=== PATIENT | male | born 1970 | race Caucasian/White ===

== ENCOUNTER 2018-08-19 12:52 | Inpatient (IN) | payer MEDICAID ==
[~2018-08-19] VITALS: Ht 162.6 cm; Wt 60.8 kg
[2018-08-19 12:55] VITALS: BP_SYST 155
[2018-08-19] MEDS ORDERED: NACL 0.9% 1,000 ML IV ONE (13:52)
[2018-08-19] MEDS ORDERED: KETOROLAC TROMETHAMINE 30 MG VIAL IVP ONE (14:00)
[2018-08-19] MEDS ORDERED: ONDANSETRON HCL 4 MG/2 ML VIAL IVP ONE (14:00)
[2018-08-19 14:23] LABS: BASOPHILS % (AUTO) 0.8 % (0.0-2.0); EOSINOPHILS % (AUTO) 0.6 % (0.0-4.0); HEMATOCRIT 34.8 % (36-54); HEMOGLOBIN 11.5 g/dL (14.0-18.0); LYMPHOCYTES # (AUTO) 0.8 K/uL (1.0-5.5); LYMPHOCYTES % (AUTO) 14.7 % (20.5-51.5); MEAN CORPUSCULAR HEMOGLOBIN 37 pg (27-31); MEAN CORPUSCULAR HGB CONC 33 % (32-36); MEAN CORPUSCULAR VOLUME 113 fL (79.0-98.0); MONOCYTES # (AUTO) 0.4 K/uL (0.0-1.0); MONOCYTES % (AUTO) 6.1 % (1.7-9.3); NEUTROPHILS # (AUTO) 4.6 K/uL (1.8-7.7); NEUTROPHILS % (AUTO) 77.8 % (40.0-70.0); PLATELET COUNT (AUTO) 240 K/uL (130-430); RED BLOOD CELL COUNT(AUTO) 3.09 MIL/uL (4.2-6.2); RED CELL DISTRIBUTION WIDTH 14.2 % (9.0-15.0); WHITE BLOOD COUNT (AUTO) 5.8 K/uL (4.8-10.8)
[2018-08-19 14:41] LABS: CALCIUM 8.8 mg/dL (8.4-11.0); CREATININE 3.63 mg/dL (0.55-1.30); POTASSIUM 4.3 mmol/L (3.5-5.1)
[2018-08-19 14:46] LABS: ALBUMIN 2.9 g/dL (3.4-4.8); TOTAL BILIRUBIN 1.1 mg/dL (0.0-1.0)
[2018-08-19] MEDS ORDERED: LOSA100T3 PO (15:05)
[2018-08-19] MEDS ORDERED: LIP20 PO (15:05)
[2018-08-19] MEDS ORDERED: HYDR-4039 PO (15:05)
[2018-08-19] MEDS ORDERED: PRO40 PO (15:05)
[2018-08-19] MEDS ORDERED: CARV25TA55 PO (15:05)
[2018-08-19] MEDS ORDERED: LIP40 PO (15:05)
[2018-08-19] MEDS ORDERED: ASPI-1155 PO (15:05)
[2018-08-19] MEDS ORDERED: D5/0.45 NS 500 ML IV SCH (15:30)
[2018-08-19] MEDS ORDERED: ONDANSETRON HCL 4 MG/2 ML VIAL IVP PRN (15:30)
[2018-08-19] MEDS ORDERED: KETOROLAC TROMETHAMINE 15 MG VIAL IVP PRN (15:30)
[2018-08-19 15:43] VITALS: BP_SYST 148
[2018-08-19] MEDS: D5/0.45 NS 1,000 ML IV SCH (17:36)
[2018-08-19] MEDS ORDERED: CARVEDILOL 25 MG TABLET (COREG) PO ONE (18:30)
[2018-08-19] MEDS ORDERED: cloNIDine HCL 0.2 MG TABLET PO PRN (18:30)
[2018-08-19] MEDS ORDERED: chlordiazePOXIDE HCL 25 MG CAPSULE PO PRN (18:45)
[2018-08-19 20:00] VITALS: BP_SYST 124
[2018-08-19] MEDS: cloNIDine HCL 0.2 MG TABLET PO SCH (20:19)
[2018-08-19] MEDS: hydrALAZINE HCL 25 MG TABLET PO SCH (20:19)
[2018-08-19] MEDS: PANTOPRAZOLE SODIUM 40 MG/VIAL (PROTONIX) IVP SCH (20:19)
[2018-08-20 00:48] VITALS: BP_SYST 112
[2018-08-20] MEDS: D5/0.45 NS 1,000 ML IV SCH ×3 (02:13→21:21)
[2018-08-20 06:39] LABS: EOSINOPHILS # (AUTO) 0.2 K/uL (0.0-0.4); EOSINOPHILS % (AUTO) 3.9 % (0.0-4.0); HEMATOCRIT 29.1 % (36-54); HEMOGLOBIN 9.1 g/dL (14.0-18.0); LYMPHOCYTES % (AUTO) 21.6 % (20.5-51.5); MEAN CORPUSCULAR HEMOGLOBIN 36 pg (27-31); MEAN CORPUSCULAR HGB CONC 31 % (32-36); MEAN CORPUSCULAR VOLUME 113 fL (79.0-98.0); MONOCYTES # (AUTO) 0.3 K/uL (0.0-1.0); MONOCYTES % (AUTO) 7.2 % (1.7-9.3); NEUTROPHILS # (AUTO) 3.2 K/uL (1.8-7.7); NEUTROPHILS % (AUTO) 66.3 % (40.0-70.0); PLATELET COUNT (AUTO) 184 K/uL (130-430); RED BLOOD CELL COUNT(AUTO) 2.57 MIL/uL (4.2-6.2); RED CELL DISTRIBUTION WIDTH 13.6 % (9.0-15.0); WHITE BLOOD COUNT (AUTO) 4.7 K/uL (4.8-10.8)
[2018-08-20 06:55] LABS: ALANINE AMINOTRANSFERASE 90 U/L (12-78); ALBUMIN 2.3 g/dL (3.4-4.8); AMYLASE 151 U/L (0-100); ANION GAP 12 (5-15); ASPARTATE AMINOTRANSFERASE 167 U/L (10-37); CALCIUM 7.6 mg/dL (8.4-11.0); CHLORIDE 106 mmol/L (98-107); CREATININE 4.28 mg/dL (0.55-1.30); GLUCOSE 117 mg/dL (70-99); LIPASE 587 U/L (73-393); PHOSPHORUS 3.8 mg/dL (2.7-4.5); POTASSIUM 3.7 mmol/L (3.5-5.1); SODIUM SERUM 133 mmol/L (136-145); TOTAL BILIRUBIN 0.7 mg/dL (0.0-1.0); UREA NITROGEN, BLOOD 16 mg/dL (8-21)
[2018-08-20 07:47] LABS: GFR AFRICAN AMERICAN 19 mL/min (>90)
[2018-08-20 08:08] VITALS: BP_SYST 119
[2018-08-20] MEDS: PANTOPRAZOLE SODIUM 40 MG/VIAL (PROTONIX) IVP SCH ×2 (08:22→21:24)
[2018-08-20] MEDS: ASPIRIN 81 MG TAB.CHEW PO SCH (08:22)
[2018-08-20] MEDS: hydrALAZINE HCL 25 MG TABLET PO SCH ×2 (08:22→21:23)
[2018-08-20] MEDS: CARVEDILOL 25 MG TABLET (COREG) PO SCH (08:23)
[2018-08-20] MEDS ORDERED: MAGNESIUM SULFATE 50 ML IV ONE ×2 (08:30→19:00)
[2018-08-20 09:00] VITALS: BP_SYST 142
[2018-08-20] MEDS: cloNIDine HCL 0.2 MG TABLET PO SCH ×2 (09:00→21:00)
[2018-08-20] MEDS: MULTIVITAMINS TAB 1 TABLET PO SCH (09:23)
[2018-08-20] MEDS: THIAMINE HCL 100 MG TABLET PO SCH (09:23)
[2018-08-20] MEDS: FOLIC ACID 1 MG TABLET PO SCH (09:23)
[2018-08-20 10:46] VITALS: BP_SYST 109
[2018-08-20 13:17] LABS: BARBITURATE, URINE NEGATIVE (NEG <=200); BENZODIAZEPINE, URINE NEGATIVE (NEG <=150); CANNABINOID, URINE NEGATIVE (NEG <=50); COCAINE, URINE NEGATIVE (NEG <=150); METHAMPHETAMINES SCREEN,URINE NEGATIVE (NEG <=500); OPIATE, URINE NEGATIVE (NEG <=100); PHENCYCLIDINE SCREEN,URINE NEGATIVE (NEG <=25); UR TRICYCLIC ANTIDEPRESSANTS NEGATIVE (NEG <=300); URINE AMPHETAMINE NEGATIVE (NEG <=500); URINE METHADONE NEGATIVE (NEG <=200); URINE OXYCODONE SCREEN NEGATIVE (NEG <=100); URINE PROPOXYPHENE SCREEN NEGATIVE (NEG <=300)
[2018-08-20 15:58] VITALS: BP_SYST 130
[2018-08-20] MEDS ORDERED: CHOLECALCIFEROL (VITAMIN D3) 2,000 UNIT TABLET PO ONE (19:00)
[2018-08-20 21:11] VITALS: BP_SYST 127
[2018-08-21 00:02] VITALS: BP_SYST 128
[2018-08-21 06:33] LABS: CREATININE 4.23 mg/dL (0.55-1.30); POTASSIUM 4.4 mmol/L (3.5-5.1)
[2018-08-21 06:35] LABS: BASOPHILS % (AUTO) 0.5 % (0.0-2.0); EOSINOPHILS # (AUTO) 0.2 K/uL (0.0-0.4); EOSINOPHILS % (AUTO) 4.6 % (0.0-4.0); HEMATOCRIT 28.4 % (36-54); HEMOGLOBIN 9.4 g/dL (14.0-18.0); LYMPHOCYTES # (AUTO) 0.9 K/uL (1.0-5.5); LYMPHOCYTES % (AUTO) 19.3 % (20.5-51.5); MEAN CORPUSCULAR HEMOGLOBIN 37 pg (27-31); MEAN CORPUSCULAR HGB CONC 33 % (32-36); MEAN CORPUSCULAR VOLUME 113 fL (79.0-98.0); MONOCYTES # (AUTO) 0.4 K/uL (0.0-1.0); NEUTROPHILS # (AUTO) 3.1 K/uL (1.8-7.7); NEUTROPHILS % (AUTO) 66.6 % (40.0-70.0); PLATELET COUNT (AUTO) 217 K/uL (130-430); RED BLOOD CELL COUNT(AUTO) 2.51 MIL/uL (4.2-6.2); RED CELL DISTRIBUTION WIDTH 13.6 % (9.0-15.0); WHITE BLOOD COUNT (AUTO) 4.6 K/uL (4.8-10.8)
[2018-08-21 06:52] LABS: TOTAL IRON BIND. CAPACITY 91 ug/dL (250-450)
[2018-08-21 07:10] LABS: HEPATITIS A AB, IgM Negative (Negative); HEPATITIS B CORE AB, IgM Negative (Negative); HEPATITIS B SURFACE AG Negative (Negative)
[2018-08-21] MEDS: D5/0.45 NS 1,000 ML IV SCH ×3 (07:10→17:13)
[2018-08-21 08:00] VITALS: BP_SYST 156
[2018-08-21] MEDS: ASPIRIN 81 MG TAB.CHEW PO SCH (09:04)
[2018-08-21] MEDS: PANTOPRAZOLE SODIUM 40 MG/VIAL (PROTONIX) IVP SCH ×2 (09:04→21:02)
[2018-08-21] MEDS: CARVEDILOL 25 MG TABLET (COREG) PO SCH (09:04)
[2018-08-21] MEDS: FOLIC ACID 1 MG TABLET PO SCH (09:04)
[2018-08-21] MEDS: MULTIVITAMINS TAB 1 TABLET PO SCH (09:05)
[2018-08-21] MEDS: cloNIDine HCL 0.2 MG TABLET PO SCH ×2 (09:05→21:03)
[2018-08-21] MEDS: THIAMINE HCL 100 MG TABLET PO SCH (09:05)
[2018-08-21] MEDS: CHOLECALCIFEROL (VITAMIN D3) 2,000 UNIT TABLET PO SCH (09:05)
[2018-08-21] MEDS: hydrALAZINE HCL 25 MG TABLET PO SCH ×2 (09:05→21:02)
[2018-08-21 12:33] VITALS: BP_SYST 133
[2018-08-21 16:40] VITALS: BP_SYST 128
[2018-08-21 19:50] VITALS: BP_SYST 143
[2018-08-21 23:24] LABS: BILIRUBIN,URINE NEGATIVE (NEGATIVE); BLOOD, URINE NEGATIVE (NEGATIVE); CLARITY/URINE CLEAR (CLEAR); COLOR,URINE YELLOW (YELLOW); GLUCOSE,URINE NEGATIVE (NEGATIVE); KETONES,URINE NEGATIVE (NEGATIVE); LEUKOCYTE ESTERASE ,URINE NEGATIVE (NEGATIVE); NITRITE, URINE NEGATIVE (NEGATIVE); PROTEIN URINE TRACE (NEGATIVE); UROBILINOGEN,URINE 0.2 (0.2-1.0)
[2018-08-22 00:09] VITALS: BP_SYST 123
[2018-08-22] MEDS: D5/0.45 NS 1,000 ML IV SCH ×3 (01:13→17:13)
[2018-08-22 06:39] LABS: CALCIUM 8.2 mg/dL (8.4-11.0); CREATININE 4.24 mg/dL (0.55-1.30); POTASSIUM 4.3 mmol/L (3.5-5.1)
[2018-08-22 06:42] LABS: BASOPHILS % (AUTO) 0.3 % (0.0-2.0); EOSINOPHILS # (AUTO) 0.2 K/uL (0.0-0.4); EOSINOPHILS % (AUTO) 3.5 % (0.0-4.0); HEMATOCRIT 26.9 % (36-54); HEMOGLOBIN 8.8 g/dL (14.0-18.0); LYMPHOCYTES # (AUTO) 1.3 K/uL (1.0-5.5); LYMPHOCYTES % (AUTO) 21.8 % (20.5-51.5); MEAN CORPUSCULAR HEMOGLOBIN 38 pg (27-31); MEAN CORPUSCULAR HGB CONC 33 % (32-36); MEAN CORPUSCULAR VOLUME 115 fL (79.0-98.0); MONOCYTES # (AUTO) 0.5 K/uL (0.0-1.0); MONOCYTES % (AUTO) 8.5 % (1.7-9.3); NEUTROPHILS # (AUTO) 3.8 K/uL (1.8-7.7); NEUTROPHILS % (AUTO) 65.9 % (40.0-70.0); PLATELET COUNT (AUTO) 235 K/uL (130-430); RED BLOOD CELL COUNT(AUTO) 2.35 MIL/uL (4.2-6.2); RED CELL DISTRIBUTION WIDTH 13.8 % (9.0-15.0); WHITE BLOOD COUNT (AUTO) 5.8 K/uL (4.8-10.8)
[2018-08-22 08:00] VITALS: BP_SYST 155
[2018-08-22] MEDS: PANTOPRAZOLE SODIUM 40 MG/VIAL (PROTONIX) IVP SCH ×2 (09:26→20:08)
[2018-08-22] MEDS: ASPIRIN 81 MG TAB.CHEW PO SCH (09:27)
[2018-08-22] MEDS: CARVEDILOL 25 MG TABLET (COREG) PO SCH (09:27)
[2018-08-22] MEDS: hydrALAZINE HCL 25 MG TABLET PO SCH ×2 (09:27→20:09)
[2018-08-22] MEDS: FOLIC ACID 1 MG TABLET PO SCH (09:27)
[2018-08-22 09:28] LABS: AFP, TUMOR MARKER 5.4 ng/mL (0.0-8.3)
[2018-08-22] MEDS: cloNIDine HCL 0.2 MG TABLET PO SCH ×2 (09:28→20:09)
[2018-08-22] MEDS: MULTIVITAMINS TAB 1 TABLET PO SCH (09:28)
[2018-08-22] MEDS: THIAMINE HCL 100 MG TABLET PO SCH (09:28)
[2018-08-22] MEDS: CHOLECALCIFEROL (VITAMIN D3) 2,000 UNIT TABLET PO SCH (09:28)
[2018-08-22 11:27] VITALS: BP_SYST 129
[2018-08-22 12:06] LABS: FOLATE (FOLIC ACID) 19.4 ng/mL (>3.0)
[2018-08-22 15:23] VITALS: BP_SYST 147
[2018-08-22 19:07] LABS: ANTI NUCLEAR AB WITH REFLEX Negative (Negative)
[2018-08-22 19:53] VITALS: BP_SYST 132
[2018-08-23 00:48] VITALS: BP_SYST 128
[2018-08-23] MEDS: D5/0.45 NS 1,000 ML IV SCH ×3 (01:13→15:29)
[2018-08-23 05:43] LABS: BASOPHILS % (AUTO) 0.2 % (0.0-2.0); EOSINOPHILS # (AUTO) 0.2 K/uL (0.0-0.4); EOSINOPHILS % (AUTO) 3.1 % (0.0-4.0); HEMATOCRIT 27.1 % (36-54); HEMOGLOBIN 8.8 g/dL (14.0-18.0); LYMPHOCYTES # (AUTO) 1.1 K/uL (1.0-5.5); LYMPHOCYTES % (AUTO) 17.3 % (20.5-51.5); MEAN CORPUSCULAR HEMOGLOBIN 37 pg (27-31); MEAN CORPUSCULAR HGB CONC 33 % (32-36); MEAN CORPUSCULAR VOLUME 114 fL (79.0-98.0); MONOCYTES # (AUTO) 0.6 K/uL (0.0-1.0); MONOCYTES % (AUTO) 8.6 % (1.7-9.3); NEUTROPHILS # (AUTO) 4.7 K/uL (1.8-7.7); PLATELET COUNT (AUTO) 239 K/uL (130-430); RED BLOOD CELL COUNT(AUTO) 2.37 MIL/uL (4.2-6.2); RED CELL DISTRIBUTION WIDTH 14.1 % (9.0-15.0); WHITE BLOOD COUNT (AUTO) 6.6 K/uL (4.8-10.8)
[2018-08-23 06:06] LABS: ALBUMIN 1.9 g/dL (3.4-4.8); CALCIUM 8.5 mg/dL (8.4-11.0); CREATININE 3.55 mg/dL (0.55-1.30); POTASSIUM 4.3 mmol/L (3.5-5.1); TOTAL BILIRUBIN 0.6 mg/dL (0.0-1.0)
[2018-08-23 07:35] LABS: NEUTROPHILS % (AUTO) 70.8 % (40.0-70.0)
[2018-08-23 08:00] VITALS: BP_SYST 134
[2018-08-23] MEDS: PANTOPRAZOLE SODIUM 40 MG/VIAL (PROTONIX) IVP SCH ×2 (08:32→20:19)
[2018-08-23] MEDS: THIAMINE HCL 100 MG TABLET PO SCH (08:35)
[2018-08-23] MEDS: ASPIRIN 81 MG TAB.CHEW PO SCH (08:36)
[2018-08-23] MEDS: MULTIVITAMINS TAB 1 TABLET PO SCH (08:37)
[2018-08-23] MEDS: FOLIC ACID 1 MG TABLET PO SCH (08:37)
[2018-08-23] MEDS: CHOLECALCIFEROL (VITAMIN D3) 2,000 UNIT TABLET PO SCH (08:37)
[2018-08-23] MEDS: cloNIDine HCL 0.2 MG TABLET PO SCH ×2 (08:39→20:20)
[2018-08-23] MEDS: hydrALAZINE HCL 25 MG TABLET PO SCH ×2 (08:39→20:20)
[2018-08-23] MEDS: CARVEDILOL 25 MG TABLET (COREG) PO SCH (08:40)
[2018-08-23 10:40] LABS: FERRITIN 1596 ng/mL (30-400)
[2018-08-23 11:20] VITALS: BP_SYST 143
[2018-08-23 15:22] VITALS: BP_SYST 120
[2018-08-23 20:00] VITALS: BP_SYST 152
[2018-08-24] MEDS: D5/0.45 NS 1,000 ML IV SCH (00:27)
[2018-08-24 00:53] VITALS: BP_SYST 133
[2018-08-24 06:39] LABS: BASOPHILS # (AUTO) 0.1 K/uL (0.0-0.2); BASOPHILS % (AUTO) 1.2 % (0.0-2.0); EOSINOPHILS # (AUTO) 0.2 K/uL (0.0-0.4); EOSINOPHILS % (AUTO) 2.7 % (0.0-4.0); HEMATOCRIT 26.6 % (36-54); HEMOGLOBIN 8.6 g/dL (14.0-18.0); LYMPHOCYTES # (AUTO) 1.3 K/uL (1.0-5.5); LYMPHOCYTES % (AUTO) 16.4 % (20.5-51.5); MEAN CORPUSCULAR HEMOGLOBIN 38 pg (27-31); MEAN CORPUSCULAR HGB CONC 32 % (32-36); MEAN CORPUSCULAR VOLUME 116 fL (79.0-98.0); MONOCYTES # (AUTO) 0.5 K/uL (0.0-1.0); MONOCYTES % (AUTO) 6.3 % (1.7-9.3); NEUTROPHILS # (AUTO) 5.7 K/uL (1.8-7.7); NEUTROPHILS % (AUTO) 73.4 % (40.0-70.0); PLATELET COUNT (AUTO) 258 K/uL (130-430); RED BLOOD CELL COUNT(AUTO) 2.29 MIL/uL (4.2-6.2); WHITE BLOOD COUNT (AUTO) 7.8 K/uL (4.8-10.8)
[2018-08-24 07:04] LABS: CALCIUM 8.6 mg/dL (8.4-11.0); CREATININE 2.94 mg/dL (0.55-1.30); POTASSIUM 4.5 mmol/L (3.5-5.1)
[2018-08-24 07:15] LABS: TOTAL BILIRUBIN 0.4 mg/dL (0.0-1.0)
[2018-08-24 08:00] VITALS: BP_SYST 164
[2018-08-24] MEDS: ASPIRIN 81 MG TAB.CHEW PO SCH (08:07)
[2018-08-24] MEDS: hydrALAZINE HCL 25 MG TABLET PO SCH (08:07)
[2018-08-24] MEDS: THIAMINE HCL 100 MG TABLET PO SCH (08:07)
[2018-08-24] MEDS: cloNIDine HCL 0.2 MG TABLET PO SCH (08:08)
[2018-08-24] MEDS: FOLIC ACID 1 MG TABLET PO SCH (08:08)
[2018-08-24] MEDS: CHOLECALCIFEROL (VITAMIN D3) 2,000 UNIT TABLET PO SCH (08:08)
[2018-08-24] MEDS: CARVEDILOL 25 MG TABLET (COREG) PO SCH (08:08)
[2018-08-24] MEDS: PANTOPRAZOLE SODIUM 40 MG/VIAL (PROTONIX) IVP SCH (08:08)
[2018-08-24] MEDS: MULTIVITAMINS TAB 1 TABLET PO SCH (08:08)
[2018-08-24 11:51] VITALS: BP_SYST 131
[2018-08-24 15:45] VITALS: BP_SYST 146
[2018-08-24 16:02] VITALS: BP_SYST 152
[2018-08-25 11:21] LABS: ANTI-SMOOTH MUSCLE AB 10 Units (0-19)
== END 2018-08-24 17:05 | disposition home or self-care (01) | DRG 282 ==
LOC: SED 12:52 → SMU 15:23
PROVIDERS: ADMIT Family Medicine; ATTEND Family Medicine
DX: K85.90 Acute pancreatitis without necrosis or infection, unspecified (principal); N17.0 Acute kidney failure with tubular necrosis; K76.7 Hepatorenal syndrome; E86.0 Dehydration; I10 Essential (primary) hypertension; D53.9 Nutritional anemia, unspecified; E78.1 Pure hyperglyceridemia; E78.5 Hyperlipidemia, unspecified; R74.0 Nonspecific elevation of levels of transaminase and lactic acid dehydrogenase [LDH]; F10.239 Alcohol dependence with withdrawal, unspecified; Y90.9 Presence of alcohol in blood, level not specified; Z90.89 Acquired absence of other organs; Z79.899 Other long term (current) drug therapy; Z79.82 Long term (current) use of aspirin
CPT/HCPCS: 36415; 74181; 76700-TC; 80048; 80053; 80074; 80307; 81003; 82105; 82150-TC; 82607; 82728; 82746; 83516; 83540-TC; 83550-TC; 83690-TC; 83735-TC; 84100-TC; 85025; 86038; 87045-TC; 87230-TC; 96361; 96374; 96375; 99285; C9113; J1885; J2405; J3475; J7030

== ENCOUNTER 2020-07-31 15:42 | Inpatient (IN) | payer MEDICAID, SELFPAY ==
[~2020-07-31] VITALS: Ht 162.6 cm; Wt 74.8 kg
[2020-07-31 15:42] VITALS: BP_SYST 191
[~2020-07-31 15:42] MED LIST: CARV25TA55 PO; HYDR-4039 PO; LIB10 PO; MAGN400T10 PO; NEPH PO; NOR10 PO; PRO40 PO; THIA100T73 PO
--- NOTE | 2020-07-31 15:42 | NUR ---
Placed in room 1. Placed on nuclear monitoring technician, blood pressure machine and pulse oximeter. To gown for exam. Side rails up.
--- NOTE | 2020-07-31 15:45 | NUR ---
LADARIUS Man at bedside examining patient.
--- NOTE | 2020-07-31 16:00 | NUR ---
#18 gauge angiocath placed to Left IJ by Dr. Man. Use of asceptic technique. Opsite placed over site. Blood return noted. Blood for lab drawn from site. Flushed with 10 cc of normal saline. No evidence of infiltration noted. Patient tolerated well.
[2020-07-31] MEDS ORDERED: NACL 0.9% 500 ML IV STA (16:03)
--- NOTE | 2020-07-31 16:10 | NUR ---
#16 gauge angiocath placed to left upper arm. Use of asceptic technique. Opsite placed over site. Blood return noted. Blood for lab drawn from site. Flushed with 10 cc of normal saline. No evidence of infiltration noted. Patient tolerated well.
[2020-07-31] MEDS ORDERED: ASPIRIN 81 MG TAB.CHEW ONE (16:12)
[2020-07-31] MEDS ORDERED: ASPIRIN 325 MG TABLET PO ONE (16:30)
[2020-07-31 16:34] LABS: BASOPHILS # (AUTO) 0.1 K/uL (0.0-0.2); BASOPHILS % (AUTO) 0.7 % (0.0-2.0); EOSINOPHILS # (AUTO) 0.1 K/uL (0.0-0.4); EOSINOPHILS % (AUTO) 0.7 % (0.0-4.0); HEMATOCRIT 42.5 % (36-54); HEMOGLOBIN 14.1 g/dL (14.0-18.0); LYMPHOCYTES # (AUTO) 1.4 K/uL (1.0-5.5); LYMPHOCYTES % (AUTO) 13.8 % (20.5-51.5); MEAN CORPUSCULAR HEMOGLOBIN 35 pg (27-31); MEAN CORPUSCULAR HGB CONC 33 % (32-36); MEAN CORPUSCULAR VOLUME 105 fL (79.0-98.0); MONOCYTES # (AUTO) 0.7 K/uL (0.0-1.0); MONOCYTES % (AUTO) 7.4 % (1.7-9.3); NEUTROPHILS # (AUTO) 7.8 K/uL (1.8-7.7); NEUTROPHILS % (AUTO) 77.4 % (40.0-70.0); PLATELET COUNT (AUTO) 205 K/uL (130-430); RED BLOOD CELL COUNT(AUTO) 4.07 MIL/uL (4.2-6.2); RED CELL DISTRIBUTION WIDTH 16.3 % (9.0-15.0); WHITE BLOOD COUNT (AUTO) 10.1 K/uL (4.8-10.8)
[2020-07-31] MEDS ORDERED: NACL 0.9% 500 ML IV ONE (16:45)
--- NOTE | 2020-07-31 16:53 | NUR ---
Pt in gurney with side rails up and in gown. Pt is alert and oriented. Pt on monitor and Biphasic pads also in place for rapid HR. IJ with IVF infusing per Dr. Man's order.
[2020-07-31 16:56] LABS: PROTHROMBIN TIME 10.2 SECS (9.5-12.5)
[2020-07-31 17:11] LABS: CALCIUM 9.5 mg/dL (8.4-11.0); CREATININE 4.42 mg/dL (0.55-1.30); POTASSIUM 4.7 mmol/L (3.5-5.1)
[2020-07-31 17:27] LABS: BILIRUBIN,DIRECT 0.3 mg/dL (0.0-0.3); FREE T4 (FREE THYROXINE) 0.9 ng/dl (0.8-1.5); THYROID STIMULATING HORMONE 1.5 uIu/mL (0.36-3.74); TOTAL BILIRUBIN 0.9 mg/dL (0.0-1.0)
[2020-07-31] MEDS ORDERED: NITROGLYCERIN 0.4 MG TAB.SUBL SL ONE ×2 (17:30→17:45)
[2020-07-31] MEDS ORDERED: DEXTROSE 50% JECT 50 ML DISP.SYRIN IVP ONE (17:45)
--- NOTE | 2020-07-31 17:58 | NUR ---
urine collected and sent to the lab
--- NOTE | 2020-07-31 17:58 | NUR ---
Pt alert and oriented. Pt C/O epigastic pain that is continuous. Pt continues to be monitored.
--- NOTE | 2020-07-31 17:59 | NUR ---
pt to CT.
[2020-07-31] MEDS ORDERED: NITROGLYCERIN 250 ML IV ONE (18:00)
[2020-07-31 18:15] LABS: BILIRUBIN,URINE NEGATIVE (NEGATIVE); BLOOD, URINE 3+ (NEGATIVE); COLOR,URINE YELLOW (YELLOW); GLUCOSE,URINE NEGATIVE (NEGATIVE); KETONES,URINE TRACE (NEGATIVE); LEUKOCYTE ESTERASE ,URINE NEGATIVE (NEGATIVE); NITRITE, URINE NEGATIVE (NEGATIVE); PH,URINE 5.5 (5.0-8.0); PROTEIN URINE 2+ (NEGATIVE); UROBILINOGEN,URINE 0.2 (0.2-1.0)
[2020-07-31] MEDS ORDERED: chlordiazePOXIDE HCL 25 MG CAPSULE PO ONE (18:15)
[2020-07-31 18:40] LABS: CLARITY/URINE SLIGHTLY CLOUDY (CLEAR)
[2020-07-31] MEDS ORDERED: HALOPERIDOL LACTATE 5 MG/ML VIAL IVP ONE (18:45)
[2020-07-31 18:49] LABS: RBC,URINE 50-80 /HPF (0-3)
[2020-07-31 18:50] LABS: BACTERIA,URINE None Seen /HPF (None Seen); CALCIUM PHOSPHATE CRYSTALS,UR None Seen /HPF (None Seen); TRICHOMONAS,URINE None Seen /HPF (None Seen); WBC,URINE NONE SEEN /HPF (0-3); YEAST,URINE None Seen /HPF (None Seen)
--- NOTE | 2020-07-31 19:13 | NUR ---
Pt is resting better now after medication was effective. Started on NTG drip per Provider orders.
--- NOTE | 2020-07-31 19:27 | NUR ---
received report from ZUNILDA Adler for continuation of care.
--- NOTE | 2020-07-31 19:28 | NUR ---
PT STATES HIS BODY ACHES HAVE GOTTEN BETTER, CHEST PAIN IS A 5 OUT OF 10. PT ON NITROGLYCERIN DRIP BEING TITRATED PER MD ORDER.
--- NOTE | 2020-07-31 19:29 | NUR ---
nitroglycerin drip titrated to 15mcg/min. pts blood pressure 182/124. will continue to monitor every 5 mins until goal of SBP of 160.
--- NOTE | 2020-07-31 19:59 | NUR ---
nitroglycerin drip titrated to 20mcg/min. pts blood pressure 174/127 . will continue to monitor every 5 mins until goal of SBP of 160.
--- NOTE | 2020-07-31 20:00 | NUR ---
dr. glass at bedside examining patient.
--- NOTE | 2020-07-31 20:01 | NUR ---
dr. sherman at bedside.
--- NOTE | 2020-07-31 20:04 | NUR ---
nitroglycerin drip titrated to 30mcg/min. pts blood pressure 189/127. will continue to monitor every 5 mins until goal of SBP of 160.
--- NOTE | 2020-07-31 20:09 | NUR ---
nitroglycerin drip titrated to 40mcg/min. pts blood pressure 176/129. will continue to monitor every 5 mins until goal of SBP of 160.
--- NOTE | 2020-07-31 20:14 | NUR ---
nitroglycerin drip titrated to 50mcg/min. pts blood pressure 195/129. will continue to monitor every 5 mins until goal of SBP of 160.
--- NOTE | 2020-07-31 20:21 | NUR ---
nitroglycerin drip titrated to 60mcg/min. pts blood pressure 173/142. will continue to monitor every 5 mins until goal of SBP of 160.
--- NOTE | 2020-07-31 20:24 | NUR ---
nitroglycerin drip titrated to 70mcg/min. pts blood pressure 188/124. will continue to monitor every 5 mins until goal of SBP of 160.
--- NOTE | 2020-07-31 20:29 | NUR ---
nitroglycerin drip titrated to 80mcg/min. pts blood pressure 180/134. will continue to monitor every 5 mins until goal of SBP of 160.
--- NOTE | 2020-07-31 20:34 | NUR ---
nitroglycerin drip titrated to 90mcg/min. pts blood pressure 176/128. will continue to monitor every 5 mins until goal of SBP of 160.
--- NOTE | 2020-07-31 20:39 | NUR ---
nitroglycerin drip titrated to 100mcg/min. pts blood pressure 174/125. will continue to monitor every 5 mins until goal of SBP of 160.
--- NOTE | 2020-07-31 20:44 | NUR ---
nitroglycerin drip titrated to 110mcg/min. pts blood pressure 174/125. will continue to monitor every 5 mins until goal of SBP of 160.
[2020-07-31] MEDS ORDERED: ONDANSETRON HCL 4 MG/2 ML VIAL IVP PRN (20:45)
--- NOTE | 2020-07-31 20:45 | NUR ---
CRITICAL VALUE LIPASE [id number]
--- NOTE | 2020-07-31 20:49 | NUR ---
nitroglycerin drip titrated to 120mcg/min. pts blood pressure 183/129. will continue to monitor every 5 mins until goal of SBP of 160.
--- NOTE | 2020-07-31 20:50 | NUR ---
PT APPEARS DIAPHORETIC AT THIS TIME. PT DENIES NAUSEA AND FEELINGS OF ANXIETY.
--- NOTE | 2020-07-31 20:54 | NUR ---
nitroglycerin drip titrated to 130mcg/min. pts blood pressure 171/122. will continue to monitor every 5 mins until goal of SBP of 160.
[2020-07-31] MEDS ORDERED: PANTOPRAZOLE SODIUM 40 MG/VIAL (PROTONIX) IVP SCH (21:00)
[2020-07-31] MEDS: PIPERACILLIN/TAZO 2.25G/DEX-IS 50 ML IV SCH (21:00)
--- NOTE | 2020-07-31 21:04 | NUR ---
nitroglycerin drip titrated to 130mcg/min. pts blood pressure 160/128. will continue to monitor every 5 mins until goal of SBP of 160.
--- NOTE | 2020-07-31 21:25 | NUR ---
Patient will be admitted to [facility]. Admitted to ICU unit. Will go to room 5. Belongings list completed. Complete and up to date summary report printed. SBAR report to be given at bedside with opportunity for questions.
--- NOTE | 2020-07-31 21:31 | NUR ---
Transfer to ICU via ACLS protocol. Licensed nurse present. IV present no signs or symptoms of infiltration.
[2020-07-31] MEDS ORDERED: NITROGLYCERIN 250 ML IV PRN (21:45)
--- NOTE | 2020-07-31 22:00 | NUR ---
CARES ASSUMED: REPORT RCVD FROM ED NURSE, ALL CARES ASSUMED. PATIENT PLACED TO ICU BED, LEADS APPLIED, BP 178/122 HR 114, R 23, O2 97%. PATIENT HAS NITRO RUNNING AT 130 MCG/KG/MIN RUNNING VIA PIV TO RIGHT AC. PATIENT ALERT AND ORIENTED TO PERSON PLACE TIME AND EVENTS LEADING TOO ADMISSION. BED IN LOWEST LOCKED POSITION AND CALL LIGHT WITHIN REACH.
[2020-07-31] MEDS: THIAMINE HCL 100 MG TABLET PO SCH (22:17)
[2020-07-31] MEDS ORDERED: THIAMINE HCL 100 MG TABLET ONE (22:31)
[2020-07-31] MEDS ORDERED: PIPERACILLIN/TAZOBACTAM 2.25 GM VIAL IV ONE (22:37)
[2020-07-31 22:45] VITALS: BP_SYST 170
--- NOTE | 2020-07-31 22:57 | NUR ---
PAGEMichel: DR. PATEL PAGEMichel R/T REQUEST FOR PRN PAIN MEDICATION
[2020-07-31 23:00] VITALS: BP_SYST 177
[2020-07-31 23:04] VITALS: BP_SYST 160
--- NOTE | 2020-07-31 23:55 | NUR ---
RETURNED CALL: PRIMARY NURSE SPOKE WITH DR. PATEL, PER MD NO NEW ORDERS. WAS INSTRUCTED TO CONTACT CARDIO MD.
--- NOTE | 2020-07-31 23:57 | NUR ---
CARDIO PAGED: DR. CADE PAGED PENDING RETURN CALL
[2020-08-01] VITALS (24 sets, daily range): BP systolic 133–178
--- NOTE | 2020-08-01 | NUR ---
CARDIO RETURNED PAGE: PER DR. CADE INFORMATION SECURITY DIRECTOR, NO NEW ORDERS.
--- NOTE | 2020-08-01 01:15 | NUR ---
PAGED: DR. PATEL PAGED, PENDING RETURN CALL. PATIENT HAVING INCREASE IN ABDOMINAL PAIN AND REQUESTING PAIN MEDICATION. PATIENT CURRENTLY HAS NO PRN ORDERS FOR PAIN.
--- NOTE | 2020-08-01 01:30 | NUR ---
DR. PATEL: HAS NOT RESPONDED TO PAGE, NEW PAGE SENT TO KALIN CASANOVA
--- NOTE | 2020-08-01 01:58 | NUR ---
NSG ROUNDS: PATIENT RESTING COMFORTABLY IN BED WITH EYES CLOSED, IN NO APPARENT ACUTE DISTRESS AND OR DISCOMFORT. BED IN LOWEST LOCKED POSITION AND CALL LIGHT WITHIN REACH.
--- NOTE | 2020-08-01 02:00 | NUR ---
CONSULTATION PAGED/CALLED Reason for Consultation: acute pancreatitis Consulting Physician: HERBERT Lens Finisher Specialty: GI Ordering Physician: HUGH
--- NOTE | 2020-08-01 02:12 | NUR ---
CONSULT PAGED: DR. HERBERT GAGNON CONSULT PAGED, WAS ABLE TO REACH VIA EXCHANGE. NEW ORDERS RC'VD, ORDERS READ BACK AND CONFIRMED. Addendum: 08/01/20 at 0226 by Liz Voss RN SPOKE WITH DR. CASANOVA
--- NOTE | 2020-08-01 02:13 | NUR ---
NEW ORDERS DR. CASANOVA Addendum: 08/01/20 at 0615 by Liz Voss RN NEW ORDERS NISHI, TAMMIE SMALLWOOD.
--- NOTE | 2020-08-01 02:15 | NUR ---
HIGH ALERT NOTE: Called Dr. CASANOVA (GI) identified within the medical roster to verify physician authenticity. NEW ORDERS RC'VD AND READ BACK FOR VERIFICATION.
[2020-08-01] MEDS ORDERED: MAG-AL HYDROX/SIMETH 30 ML UDC PO PRN (02:30)
[2020-08-01] MEDS: PIPERACILLIN/TAZO 2.25G/DEX-IS 50 ML IV SCH ×4 (02:31→22:05)
[2020-08-01] MEDS: LR 1,000 ML IV SCH ×3 (02:31→17:40)
[2020-08-01] MEDS: HYDROmorphone 2 MG/ML VIAL IVP PRN (02:32)
--- NOTE | 2020-08-01 03:48 | NUR ---
NSG ROUNDS: CONTINUING WITH TAPERING OF NITRO DRIP, CURRENTLY RUNNING AT 80MCG/KG/MIN, BP 142/96 HR 137 SINUS TACH. PATIENT HAS EYES CLOSED IN NO APPARENT DISTRESS, MONITORING AT THIS TIME.
[2020-08-01] MEDS: LORazepam 2 MG/ML VIAL IVP PRN ×2 (04:01→18:47)
--- NOTE | 2020-08-01 04:25 | NUR ---
PAGED: DR. CADE CARDIOLOGY PAGED R/T HR 135-145'S, PRN ATIVAN AND DILAUDID NOT EFFECTIVE. PENDING RETURN CALL, PATIENT DENIES ANY DISCOMFORT AT THIS TIME, RESPONDS APPROPRIATELY, CHARGE AWARE.
--- NOTE | 2020-08-01 04:29 | NUR ---
CARDIOLOGY : DR. CADE CALLED UNIT, ORDER RC'VD FOR LOPRESSOR 5 MG IVP ONCE, ORDER CONFIRMED AND READ BACK, ORDER TRANSCRIBED AND CARRIED OUT.
[2020-08-01] MEDS ORDERED: METOPROLOL TARTRATE 5 MG/5 ML VIAL IVP ONE (04:45)
[2020-08-01] MEDS ORDERED: METOPROLOL TARTRATE 5 MG/5 ML VIAL ONE (04:56)
--- NOTE | 2020-08-01 05:06 | NUR ---
LAB DRAW: PEPPER CUTTER AT BEDSIDE PERFORMING LAB DRAW, PT TOLERATED WELL.
--- NOTE | 2020-08-01 05:07 | NUR ---
PAGED FOR CONSULT REASON FOR CONSULT: RENAL FAILURE ORDERING PHYSICIAN: DIALED: [phone] SPOKE TO: SWAPNIL
--- NOTE | 2020-08-01 05:30 | NUR ---
NSG ROUNDS: PATIENT IN BED WITH EYES CLOSED IN NO ACUTE DISTRESS AND OR DISCOMFORT. REMAINS SINUS TACH VIA MONITOR, PATIENT DENIES ANY PAIN. BED IN LOWEST LOCKED POSITION WITH CALL LIGHT IN REACH, CHG BATH GIVEN PT TOLERATED WELL.
[2020-08-01 06:26] LABS: BASOPHILS % (AUTO) 0.5 % (0.0-2.0); EOSINOPHILS # (AUTO) 0.1 K/uL (0.0-0.4); EOSINOPHILS % (AUTO) 1.4 % (0.0-4.0); HEMATOCRIT 41.9 % (36-54); LYMPHOCYTES # (AUTO) 0.6 K/uL (1.0-5.5); LYMPHOCYTES % (AUTO) 6.5 % (20.5-51.5); MEAN CORPUSCULAR HEMOGLOBIN 35 pg (27-31); MEAN CORPUSCULAR HGB CONC 33 % (32-36); MEAN CORPUSCULAR VOLUME 104 fL (79.0-98.0); MONOCYTES # (AUTO) 0.4 K/uL (0.0-1.0); MONOCYTES % (AUTO) 4.7 % (1.7-9.3); NEUTROPHILS # (AUTO) 7.8 K/uL (1.8-7.7); NEUTROPHILS % (AUTO) 86.9 % (40.0-70.0); PLATELET COUNT (AUTO) 156 K/uL (130-430); RED BLOOD CELL COUNT(AUTO) 4.01 MIL/uL (4.2-6.2); RED CELL DISTRIBUTION WIDTH 16.5 % (9.0-15.0)
--- NOTE | 2020-08-01 06:44 | NUR ---
CLOSING NOTE: PATIENT REMAINS IN BED WITH EYES CLOSED, BED IN LOWEST LOCKED POSITION WITH CALL LIGHT IN REACH. ALL NEEDS MET, WILL ENDORSE CARES TO NOC NURSE.
[2020-08-01 06:52] LABS: ALBUMIN 3.3 g/dL (3.4-4.8); BILIRUBIN,DIRECT 0.4 mg/dL (0.0-0.3); CALCIUM 8.8 mg/dL (8.4-11.0); CREATININE 4.38 mg/dL (0.55-1.30); POTASSIUM 5.1 mmol/L (3.5-5.1); TOTAL BILIRUBIN 1.3 mg/dL (0.0-1.0)
--- NOTE | 2020-08-01 07:15 | NUR ---
Nutrition Update Fantasma Scale 15 noted. Pt admitted for Hypertensive Crisis Diet: NPO BMI: 28.3 kg/m2 RD to follow per nutrition care standards.
--- NOTE | 2020-08-01 07:30 | NUR ---
Opening Notes Pt received from night RN using SBAR. Pt resting in bed with no complaints of pain or distress at this time. Bed is in lowest position and pt has been reoriented to call light.
--- NOTE | 2020-08-01 08:30 | NUR ---
Seizure Pads Seizure pads applied to bedside
--- NOTE | 2020-08-01 08:30 | NUR ---
MD Dr. Larios at bedside, informed of Amylase result. New order received to increase IVF to 150cc/hr.
--- NOTE | 2020-08-01 08:45 | NUR ---
Seizure S/S Dialogue with pt pertaining to ETOH withdraw, signs and symptoms of seizure, trembles and changes of condition. Pt was notified to let any nursing staff if any feelings emerge.
[2020-08-01] MEDS ORDERED: PANTOPRAZOLE SODIUM 40 MG TAB PO SCH (09:00)
--- NOTE | 2020-08-01 09:20 | NUR ---
ECHO Pt is having an ECHO performed bedside, pt is tolerating well.
[2020-08-01] MEDS: PANTOPRAZOLE SODIUM 40 MG/VIAL (PROTONIX) IVP SCH ×2 (10:06→22:06)
[2020-08-01] MEDS: THIAMINE HCL 100 MG TABLET PO SCH (10:07)
--- NOTE | 2020-08-01 10:19 | NUR ---
MD Dr. Springer at bedside with pt, new orders received.
[2020-08-01] MEDS ORDERED: CARVEDILOL 25 MG TABLET (COREG) PO ONE (10:30)
[2020-08-01] MEDS ORDERED: amLODIPine BESYLATE 10 MG TABLET PO ONE (10:30)
--- NOTE | 2020-08-01 12:12 | NUR ---
PATIENT RESTING: Patient resting quietly. No acute distress noted. Will continue to monitor.
--- NOTE | 2020-08-01 14:40 | NUR ---
Family Pts father called placed phone in pts room and transferred call. Oriented pt to in room phone and assisted with receiving phone call from pts father.
--- NOTE | 2020-08-01 14:41 | NUR ---
SS note Referred by the Admission Assessment. Asked Thomas MAURO to correct homeless referral as patient is not homeless. As per the notes, patient lives with his parents. Commander Internal Affairs will meet with patient regarding his substance abuse possibly tomorrow when he is more alert and oriented.
--- NOTE | 2020-08-01 18:50 | NUR ---
Medication Pt stated that the feeling of shaky hands is starting, medicated with Ativan. Will continue to monitor.
--- NOTE | 2020-08-01 19:15 | NUR ---
Closing Notes Pt endorsed to night RN using SBAR providing bedside report, all questions answered.
--- NOTE | 2020-08-01 20:57 | NUR ---
PT REASSESSED REORIENTED TO UNIT IV SITES WNL
[2020-08-01] MEDS: CARVEDILOL 25 MG TABLET (COREG) PO SCH (22:07)
--- NOTE | 2020-08-01 23:55 | NUR ---
PT ASSISTED TO REPOSITION REORIENTED TO TIME UNIT IV SITES WNL
[2020-08-02] VITALS (24 sets, daily range): BP systolic 104–151
--- NOTE | 2020-08-02 00:35 | NUR ---
PT PULLED OUT LEFT EJ IV AND RT AC IV SAID HE DID NOT KNOW SLEEPING CHG RN TO ASSIST TO RESTART 2 IVS
[2020-08-02] MEDS: PIPERACILLIN/TAZO 2.25G/DEX-IS 50 ML IV SCH ×4 (03:38→21:39)
[2020-08-02 06:01] LABS: BASOPHILS # (AUTO) 0.1 K/uL (0.0-0.2); BASOPHILS % (AUTO) 0.5 % (0.0-2.0); EOSINOPHILS # (AUTO) 0.2 K/uL (0.0-0.4); EOSINOPHILS % (AUTO) 1.7 % (0.0-4.0); HEMATOCRIT 35.4 % (36-54); LYMPHOCYTES # (AUTO) 1.1 K/uL (1.0-5.5); LYMPHOCYTES % (AUTO) 10.8 % (20.5-51.5); MEAN CORPUSCULAR HEMOGLOBIN 35 pg (27-31); MEAN CORPUSCULAR HGB CONC 34 % (32-36); MEAN CORPUSCULAR VOLUME 102 fL (79.0-98.0); MONOCYTES # (AUTO) 0.7 K/uL (0.0-1.0); MONOCYTES % (AUTO) 6.4 % (1.7-9.3); NEUTROPHILS # (AUTO) 8.4 K/uL (1.8-7.7); NEUTROPHILS % (AUTO) 80.6 % (40.0-70.0); PLATELET COUNT (AUTO) 101 K/uL (130-430); RED BLOOD CELL COUNT(AUTO) 3.47 MIL/uL (4.2-6.2); RED CELL DISTRIBUTION WIDTH 16.6 % (9.0-15.0); WHITE BLOOD COUNT (AUTO) 10.4 K/uL (4.8-10.8)
[2020-08-02 06:19] LABS: ALBUMIN 2.6 g/dL (3.4-4.8); CALCIUM 8.2 mg/dL (8.4-11.0); CREATININE 3.34 mg/dL (0.55-1.30)
[2020-08-02 06:27] LABS: INR 1.1 (0.80-1.20)
--- NOTE | 2020-08-02 07:35 | NUR ---
Opening Note Received bedside report from endorsing RN for continuation of care. Received patient awake and resting in bed, denies any pain or SOB at this time. Bed locked in lowest position, bed alarm on, and call light within reach. Fall and safety precautions in place.
--- NOTE | 2020-08-02 08:12 | NUR ---
Dr. Alejandra in to see patient. New orders received.
[2020-08-02] MEDS: PANTOPRAZOLE SODIUM 40 MG/VIAL (PROTONIX) IVP SCH ×2 (08:24→21:39)
[2020-08-02] MEDS: amLODIPine BESYLATE 10 MG TABLET PO SCH (08:24)
[2020-08-02] MEDS: THIAMINE HCL 100 MG TABLET PO SCH (08:24)
[2020-08-02] MEDS: CARVEDILOL 25 MG TABLET (COREG) PO SCH ×2 (08:25→21:39)
[2020-08-02] MEDS: LR 1,000 ML IV SCH (08:26)
[2020-08-02] MEDS: HYDROmorphone 2 MG/ML VIAL IVP PRN (08:28)
--- NOTE | 2020-08-02 08:45 | NUR ---
Dr. Springer at bedside examining patient. No new orders.
--- NOTE | 2020-08-02 08:50 | NUR ---
Dr. Larios at bedside examining patient. New orders received.
[2020-08-02] MEDS: LORazepam 2 MG/ML VIAL IVP PRN (11:23)
--- NOTE | 2020-08-02 12:14 | NUR ---
Manager Primary Care Note Patient referred by Nursing Assessment. Patient is known to Manager Primary Care from past admissions. See prior notes. TAX ADJUSTER met with patient at bedside. He was oriented but drowsy. Patient lives with his father, who, patient stated does not drink. Discussed patient's substance abuse. Patient is aware that his continued alcohol consumption may hasten his . He has used AA successfully in the past. He is unsure if he wants to follow up with a substance abuse resource at this time. Explained he has to make the contact, but Manager Primary Care can assist in making that happen at patient's direction. Left patient the list of substance abuse resources and my card. Manager Primary Care will remain available.
[2020-08-02] MEDS: NITROGLYCERIN 250 ML IV PRN (12:26)
--- NOTE | 2020-08-02 12:35 | NUR ---
Family Update Spoke with patient's brother Knedall on the phone regarding patient status and plan of care. All questions answered and education provided.
--- NOTE | 2020-08-02 14:30 | NUR ---
PICC Line Insertion PICC line insertion being done at bedside by PICC line RN Zaida.
--- NOTE | 2020-08-02 19:22 | NUR ---
Dietitian Recommendations *When medically feasible, recommend a Cardiac diet *Continue Thiamine coverage *Consider an MVI daily Please see Nutrition Assessment for further details. LT, RD
--- NOTE | 2020-08-02 19:23 | NUR ---
Closing Note Endorsed bedside report to oncoming RN using SBAR approach for continuation of care.
--- NOTE | 2020-08-02 20:00 | NUR ---
ASSESSMENT Pt alert/oriented to self, time, and place. Oxygen in use 1L/min via nasal cannula. Pt's speech is clear and appropriate. Pt has tremors when reaching out upper extremities. PICC line present right upper arm, no redness or swelling noted @ site. Pt voiding. Nitro drip infusing.
[2020-08-02] MEDS: chlordiazePOXIDE HCL 25 MG CAPSULE PO PRN (21:50)
[2020-08-03] VITALS (24 sets, daily range): BP systolic 126–174
[2020-08-03] MEDS: NITROGLYCERIN 250 ML IV PRN (00:41)
[2020-08-03] MEDS: PIPERACILLIN/TAZO 2.25G/DEX-IS 50 ML IV SCH ×4 (04:14→22:08)
[2020-08-03 05:32] LABS: BASOPHILS # (AUTO) 0.2 K/uL (0.0-0.2); BASOPHILS % (AUTO) 2.1 % (0.0-2.0); EOSINOPHILS # (AUTO) 0.6 K/uL (0.0-0.4); EOSINOPHILS % (AUTO) 5.9 % (0.0-4.0); HEMATOCRIT 30.4 % (36-54); HEMOGLOBIN 10.3 g/dL (14.0-18.0); LYMPHOCYTES # (AUTO) 0.8 K/uL (1.0-5.5); LYMPHOCYTES % (AUTO) 8.2 % (20.5-51.5); MEAN CORPUSCULAR HEMOGLOBIN 35 pg (27-31); MEAN CORPUSCULAR HGB CONC 34 % (32-36); MEAN CORPUSCULAR VOLUME 103 fL (79.0-98.0); MONOCYTES # (AUTO) 0.5 K/uL (0.0-1.0); MONOCYTES % (AUTO) 5.5 % (1.7-9.3); NEUTROPHILS # (AUTO) 7.3 K/uL (1.8-7.7); NEUTROPHILS % (AUTO) 78.3 % (40.0-70.0); PLATELET COUNT (AUTO) 79 K/uL (130-430); RED BLOOD CELL COUNT(AUTO) 2.96 MIL/uL (4.2-6.2); WHITE BLOOD COUNT (AUTO) 9.4 K/uL (4.8-10.8)
[2020-08-03 05:50] LABS: ALBUMIN 2.5 g/dL (3.4-4.8); CALCIUM 8.6 mg/dL (8.4-11.0); CREATININE 2.92 mg/dL (0.55-1.30); POTASSIUM 3.6 mmol/L (3.5-5.1); TOTAL BILIRUBIN 0.9 mg/dL (0.0-1.0)
[2020-08-03] MEDS: LR 1,000 ML IV SCH (05:54)
[2020-08-03] MEDS: chlordiazePOXIDE HCL 25 MG CAPSULE PO PRN ×3 (06:17→17:54)
[2020-08-03] MEDS: cloNIDine HCL 0.1 MG TABLET PO PRN ×3 (06:17→22:06)
[2020-08-03 06:35] LABS: HEPATITIS A AB, IgM Negative (Negative); HEPATITIS B CORE AB, IgM Negative (Negative); HEPATITIS B SURFACE AG Negative (Negative)
--- NOTE | 2020-08-03 07:20 | NUR ---
Opening Note Patient report received via SBAR from endorsing RN
--- NOTE | 2020-08-03 08:00 | NUR ---
ROUND Dr. Larios in to see patient, new orders entered
[2020-08-03] MEDS: amLODIPine BESYLATE 10 MG TABLET PO SCH (08:26)
[2020-08-03] MEDS: THIAMINE HCL 100 MG TABLET PO SCH (08:26)
[2020-08-03] MEDS: PANTOPRAZOLE SODIUM 40 MG/VIAL (PROTONIX) IVP SCH ×2 (08:27→22:08)
[2020-08-03] MEDS: CARVEDILOL 25 MG TABLET (COREG) PO SCH ×2 (08:27→22:07)
--- NOTE | 2020-08-03 09:00 | NUR ---
ROUND Dr. Springer in to see patient, physician to enter orders
[2020-08-03] MEDS ORDERED: LOSARTAN POTASSIUM 50 MG TABLET (COZAAR) PO ONE (09:30)
[2020-08-03] MEDS: LORazepam 2 MG/ML VIAL IVP PRN (10:04)
--- NOTE | 2020-08-03 12:00 | NUR ---
Nursing Note Patient had loose BM, patient was given CHG bath, patient cleaned and repositioned
--- NOTE | 2020-08-03 14:00 | NUR ---
Nursing Note Patient had loose BM, patient cleaned and repositioned.
--- NOTE | 2020-08-03 15:45 | NUR ---
ROUND Dr. Alejandra in to see patient, physician entered orders
[2020-08-03] MEDS ORDERED: NITROGLYCERIN 250 ML IV PRN (17:45)
--- NOTE | 2020-08-03 18:50 | NUR ---
ROUND Dr. Cardoso in to see patient, physician entered orders
--- NOTE | 2020-08-03 19:18 | NUR ---
Closing Note Patient report given via SBAR to nightshift RN
--- NOTE | 2020-08-03 20:00 | NUR ---
ASSESSMENT Pt alert/oriented to self, time, and place. Pt on room air. No c/o abdominal pain. Pt had 1 loose stool. IV Fluids and Nitro drip infusing in right upper arm PICC. No redness or swelling noted @ site.
--- NOTE | 2020-08-03 22:00 | NUR ---
ELEVATED BP Has IV nitro infusing. SBP above 160. Medicated with [facility] P.O.
--- NOTE | 2020-08-03 23:00 | NUR ---
Continuation of Care Received patient from ZUNILDA Mulligan for continuation of care. Received report via SBAR.
--- NOTE | 2020-08-03 23:30 | NUR ---
Nursing Assessment Patient is resting in bed. Asked if he was in pain and he stated no and he feels a lot better. Asked if he was comfortable and he stated yes. Will continue to monitor.
[2020-08-04] VITALS (20 sets, daily range): BP systolic 103–164
--- NOTE | 2020-08-04 02:00 | NUR ---
Nursing Assessment Patient is resting in bed. Asked if he was in pain and he stated no. Will continue to monitor.
[2020-08-04] MEDS: chlordiazePOXIDE HCL 25 MG CAPSULE PO PRN ×2 (02:51→07:58)
[2020-08-04] MEDS: PIPERACILLIN/TAZO 2.25G/DEX-IS 50 ML IV SCH ×4 (02:51→20:53)
[2020-08-04 05:53] LABS: BASOPHILS # (AUTO) 0.1 K/uL (0.0-0.2); BASOPHILS % (AUTO) 0.7 % (0.0-2.0); EOSINOPHILS # (AUTO) 0.5 K/uL (0.0-0.4); EOSINOPHILS % (AUTO) 5.2 % (0.0-4.0); HEMATOCRIT 30.8 % (36-54); HEMOGLOBIN 10.4 g/dL (14.0-18.0); LYMPHOCYTES # (AUTO) 1.2 K/uL (1.0-5.5); LYMPHOCYTES % (AUTO) 13.7 % (20.5-51.5); MEAN CORPUSCULAR HEMOGLOBIN 35 pg (27-31); MEAN CORPUSCULAR HGB CONC 34 % (32-36); MEAN CORPUSCULAR VOLUME 102 fL (79.0-98.0); MONOCYTES # (AUTO) 0.8 K/uL (0.0-1.0); MONOCYTES % (AUTO) 9.5 % (1.7-9.3); NEUTROPHILS # (AUTO) 6.2 K/uL (1.8-7.7); NEUTROPHILS % (AUTO) 70.9 % (40.0-70.0); PLATELET COUNT (AUTO) 99 K/uL (130-430); RED BLOOD CELL COUNT(AUTO) 3.01 MIL/uL (4.2-6.2); RED CELL DISTRIBUTION WIDTH 16.2 % (9.0-15.0); WHITE BLOOD COUNT (AUTO) 8.8 K/uL (4.8-10.8)
[2020-08-04 06:01] LABS: ALBUMIN 2.3 g/dL (3.4-4.8); CALCIUM 8.7 mg/dL (8.4-11.0); CREATININE 2.24 mg/dL (0.55-1.30); POTASSIUM 3.5 mmol/L (3.5-5.1); TOTAL BILIRUBIN 0.9 mg/dL (0.0-1.0)
--- NOTE | 2020-08-04 07:05 | NUR ---
Opening Note Patient report received via SBAR from endorsing RN
--- NOTE | 2020-08-04 07:09 | NUR ---
Closing Note Endorsed report to AM nurse using SBAR approach.
--- NOTE | 2020-08-04 07:25 | NUR ---
ROUND Dr. Alejandra in to see patient, physician entered orders
[2020-08-04] MEDS ORDERED: hydrALAZINE HCL 25 MG TABLET PO ONE (07:30)
[2020-08-04] MEDS: PANTOPRAZOLE SODIUM 40 MG/VIAL (PROTONIX) IVP SCH ×2 (07:57→20:53)
[2020-08-04] MEDS: amLODIPine BESYLATE 10 MG TABLET PO SCH (07:57)
[2020-08-04] MEDS: CARVEDILOL 25 MG TABLET (COREG) PO SCH ×2 (07:58→20:53)
[2020-08-04] MEDS: THIAMINE HCL 100 MG TABLET PO SCH (07:58)
[2020-08-04] MEDS: NACL 0.9% 1,000 ML IV SCH (07:59)
[2020-08-04] MEDS: LOSARTAN POTASSIUM 50 MG TABLET (COZAAR) PO SCH (08:09)
[2020-08-04 08:34] LABS: BILIRUBIN,URINE NEGATIVE (NEGATIVE); BLOOD, URINE 3+ (NEGATIVE); CLARITY/URINE CLEAR (CLEAR); COLOR,URINE YELLOW (YELLOW); GLUCOSE,URINE NEGATIVE (NEGATIVE); KETONES,URINE NEGATIVE (NEGATIVE); LEUKOCYTE ESTERASE ,URINE NEGATIVE (NEGATIVE); NITRITE, URINE NEGATIVE (NEGATIVE); PH,URINE 6.5 (5.0-8.0); PROTEIN URINE 2+ (NEGATIVE); UROBILINOGEN,URINE 0.2 (0.2-1.0)
[2020-08-04 08:48] LABS: BACTERIA,URINE FEW /HPF (None Seen); MUCUS,URINE 1+ /LPF (None Seen); WBC,URINE 0-3 /HPF (0-3)
--- NOTE | 2020-08-04 10:30 | NUR ---
ROUND Dr. Larios in to see patient, new orders entered
--- NOTE | 2020-08-04 11:39 | NUR ---
Spoke w/ Sis at [facility]-given verbal review due to computer issues at [facility]-approved for ICU level of care
--- NOTE | 2020-08-04 13:15 | NUR ---
ROUND Dr. Springer in to see patient, no new orders
[2020-08-04] MEDS ORDERED: hydrALAZINE HCL 25 MG TABLET PO SCH (14:00)
[2020-08-04] MEDS: hydrALAZINE HCL 25 MG TABLET PO SCH ×2 (14:34→21:55)
--- NOTE | 2020-08-04 15:00 | NUR ---
Nursing Note Patient had loose BM, patient cleaned and repositioned. Patient tolerated well
--- NOTE | 2020-08-04 18:58 | NUR ---
ROUND Dr. Cardoso in to see patient, new orders entered
--- NOTE | 2020-08-04 19:16 | NUR ---
CLOSING NOTE Patient report given to nightshift RN via SBAR
--- NOTE | 2020-08-04 19:17 | NUR ---
Opening Note Received report from AM nurse using SBAR approach.
--- NOTE | 2020-08-04 20:00 | NUR ---
Nursing Assessment Patient is resting in bed with no signs or symptoms of distress noted. Patient stated he has no pain and is comfortable. Bed is locked in lowest position, and call light is within reach. Will continue to monitor.
[2020-08-05] VITALS: BP_SYST 151
--- NOTE | 2020-08-05 01:00 | NUR ---
Nursing Assessment Patient is resting in bed. No signs or symptoms of distress noted. Patient states that he is comfortable and has no pain. Will continue to monitor.
[2020-08-05] MEDS: NACL 0.9% 1,000 ML IV SCH (02:39)
[2020-08-05] MEDS: PIPERACILLIN/TAZO 2.25G/DEX-IS 50 ML IV SCH ×4 (02:39→21:37)
--- NOTE | 2020-08-05 03:00 | NUR ---
Nursing Assessment Patient is resting in bed. Patient stated that he has no pain and is comfortable. Will continue to monitor.
[2020-08-05] MEDS: hydrALAZINE HCL 25 MG TABLET PO SCH ×3 (04:49→22:50)
[2020-08-05] MEDS: ACETAMINOPHEN 325 MG TABLET PO PRN ×2 (04:53→18:18)
--- NOTE | 2020-08-05 04:55 | NUR ---
Nursing Assessment Patient is resting in bed. Stated he has mild pain in his abdomen. Provided patient with Tyenol 60 mg PRN. Will continue to monitor.
[2020-08-05 05:09] LABS: BASOPHILS # (AUTO) 0.1 K/uL (0.0-0.2); EOSINOPHILS # (AUTO) 0.5 K/uL (0.0-0.4); HEMATOCRIT 34.6 % (36-54); HEMOGLOBIN 11.6 g/dL (14.0-18.0); LYMPHOCYTES # (AUTO) 1.1 K/uL (1.0-5.5); LYMPHOCYTES % (AUTO) 14.2 % (20.5-51.5); MEAN CORPUSCULAR HEMOGLOBIN 35 pg (27-31); MEAN CORPUSCULAR HGB CONC 34 % (32-36); MEAN CORPUSCULAR VOLUME 103 fL (79.0-98.0); MONOCYTES # (AUTO) 0.8 K/uL (0.0-1.0); MONOCYTES % (AUTO) 9.8 % (1.7-9.3); NEUTROPHILS # (AUTO) 5.5 K/uL (1.8-7.7); PLATELET COUNT (AUTO) 138 K/uL (130-430); RED BLOOD CELL COUNT(AUTO) 3.37 MIL/uL (4.2-6.2); RED CELL DISTRIBUTION WIDTH 16.5 % (9.0-15.0)
[2020-08-05 05:31] LABS: ALBUMIN 2.3 g/dL (3.4-4.8); CALCIUM 8.8 mg/dL (8.4-11.0); CREATININE 2.16 mg/dL (0.55-1.30); POTASSIUM 3.4 mmol/L (3.5-5.1); TOTAL BILIRUBIN 0.6 mg/dL (0.0-1.0)
--- NOTE | 2020-08-05 06:00 | NUR ---
Transfer Transferred patient to telemetry bed 114 monitoring his vital signs during transfer. No signs or symptoms of distress noted. Endorsed report to Heather MAURO via SBAR approach.
[2020-08-05 06:11] VITALS: BP_SYST 141
--- NOTE | 2020-08-05 06:18 | NUR ---
Brooke of care: Received report from ICU ZUNILDA Mayfield. Patient in bed, resting. No acute distress. Even, nonlabored breathing on room air. MARCIN PICC line receiving fluids as ordered. Bed is locked at lowest position. Side rails up x2. Bed alarm on. Call light is with patient. Safety and fall precautions are in place. Will continue with plan of care.
--- NOTE | 2020-08-05 06:57 | NUR ---
Closing note: Patient in bed, resting. No acute distress. Even, nonlabored breathing on room air. MARCIN PICC line dressing is c/d/i. Bed is locked at lowest position. Side rails up x2. Bed alarm on. Call light is with patient. Safety and fall precautions are in place. Will endorse care to dayshift RN.
[2020-08-05] MEDS: THIAMINE HCL 100 MG TABLET PO SCH (08:51)
[2020-08-05] MEDS: PANTOPRAZOLE SODIUM 40 MG/VIAL (PROTONIX) IVP SCH ×2 (08:51→21:38)
[2020-08-05] MEDS: CARVEDILOL 25 MG TABLET (COREG) PO SCH ×2 (08:53→21:39)
[2020-08-05] MEDS: amLODIPine BESYLATE 10 MG TABLET PO SCH (08:53)
[2020-08-05] MEDS: LOSARTAN POTASSIUM 50 MG TABLET (COZAAR) PO SCH (09:03)
--- NOTE | 2020-08-05 10:17 | NUR ---
alert, oriented, appropriate. Noticeable tremors on both hands, when holding his coffee. LIBRIUM gave earlier. Encouraged to use bsc until stable. Appetite for breakfast 100%, no complaint of abdominal, nor N/V at this time
[2020-08-05 12:57] VITALS: BP_SYST 131
[2020-08-05] MEDS: chlordiazePOXIDE HCL 25 MG CAPSULE PO PRN (13:01)
[2020-08-05 13:59] VITALS: BP_SYST 126
[2020-08-05 16:00] VITALS: BP_SYST 139
--- NOTE | 2020-08-05 16:10 | NUR ---
diet changed to regular, starting at lunch, appetite good. seen by forestry consultant , covering for the attending, dr maza by gi by nephro. No new orders. patient alert, oriented, able to walk to bathroom, no complaint of abdominal pain, " not anymore"; noticeable tremors on both hands, Librium 25mg po given, asleep .
--- NOTE | 2020-08-05 17:47 | NUR ---
Nutrition F/U (short note d/t high patient load) RD reviewed pt's current EMR including diet Hx, physician notes, nursing notes, pertinent labs/meds/procedures, care trends, and care activity. Per EMR review, pt was advanced to regular diet today; PO intakes fair/good at 78% average x7 meals. Pt would benefit from modification of regular diet to cardiac diet d/t Hx of CHF, CKD, and alcoholic liver Dz. Pt would also benefit from a MVI d/t Hx of alcohol dependence. Pt will be re-assessed in 3-[address] for moderate nutritional risk.
--- NOTE | 2020-08-05 19:30 | NUR ---
OPENING NOTES RECEIVED SBAR REPORT FROM DAY SHIFT RN. PT RESTING IN BED, ALERT & ORIENTED X4. BREATHING EVEN AND UNLABORED TO ROOM AIR. NO S/S OF SHORTNESS OF BREATH NOTED. RIGHT UPPER ARM PICC LINE INTACT, IVF RUNNING ORDERED RATE. BEDSIDE COMMODE AT THE BEDSIDE. BED ALARM ON. SIDE RAILS UP X2. CALL LIGHT WITHIN REACH. SAFETY AND FALL PRECAUTIONS MAINTAINED. WILL CONTINUE TO MONITOR.
[2020-08-05 20:00] VITALS: BP_SYST 153
--- NOTE | 2020-08-05 21:37 | NUR ---
MEDICATION PASS SCHEDULED MEDICATIONS ADMINISTERED ORDERED. DISCUSSED MEDICATION ACTIONS AND POTENTIAL SIDE EFFECTS. PT VERBALIZED UNDERSTANDING. BREATHING EVEN AND UNLABORED TO ROOM AIR. NO S/S OF ACUTE DISTRESS NOTED. CALL LIGHT WITHIN REACH. SAFETY AND FALL PRECAUTIONS MAINTAINED. WILL MONITOR.
--- NOTE | 2020-08-05 23:50 | NUR ---
RN ROUNDS PT RESTING IN BED, WATCHING TV. PT DENIES ANY PAIN AT THIS TIME. CHEST RISE AND FALL SYMMETRICAL. IVF RUNNING ORDERED RATE. PT TOLERATING WELL. BED LOCKED IN LOWEST POSITION. SAFETY AND FALL PRECAUTIONS ARE IN PLACE. WILL CONTINUE TO MONITOR.
[2020-08-06 00:30] VITALS: BP_SYST 144
[2020-08-06] MEDS: NACL 0.9% 1,000 ML IV SCH ×2 (03:35→18:22)
[2020-08-06] MEDS: PIPERACILLIN/TAZO 2.25G/DEX-IS 50 ML IV SCH ×4 (03:35→20:44)
[2020-08-06] MEDS: ACETAMINOPHEN 325 MG TABLET PO PRN ×2 (03:37→20:46)
[2020-08-06] MEDS: hydrALAZINE HCL 25 MG TABLET PO SCH ×3 (06:05→22:45)
--- NOTE | 2020-08-06 07:02 | NUR ---
CLOSING NOTES PT RESTING IN BED. BREATHING EVEN AND UNLABORED TO ROOM AIR. NO S/S OF SHORTNESS OF BREATH NOTED. RIGHT UPPER ARM PICC LINE INTACT, IVF RUNNING ORDERED RATE. BEDSIDE COMMODE AT THE BEDSIDE. BED ALARM ON. SIDE RAILS UP X2. CALL LIGHT WITHIN REACH. SAFETY AND FALL PRECAUTIONS MAINTAINED. ALL NEEDS ARE MET THROUGHOUT SHIFT. WILL CONTINUE TO MONITOR UNTIL ENDORSE TO DAY SHIFT RN.
--- NOTE | 2020-08-06 07:20 | NUR ---
Opening Note Received plan of care via sbar from endorsing RN.
[2020-08-06 07:34] LABS: BASOPHILS # (AUTO) 0.1 K/uL (0.0-0.2); EOSINOPHILS # (AUTO) 0.5 K/uL (0.0-0.4); EOSINOPHILS % (AUTO) 6.4 % (0.0-4.0); HEMATOCRIT 34.2 % (36-54); HEMOGLOBIN 11.4 g/dL (14.0-18.0); LYMPHOCYTES # (AUTO) 1.2 K/uL (1.0-5.5); LYMPHOCYTES % (AUTO) 15.3 % (20.5-51.5); MEAN CORPUSCULAR HEMOGLOBIN 35 pg (27-31); MEAN CORPUSCULAR HGB CONC 33 % (32-36); MEAN CORPUSCULAR VOLUME 103 fL (79.0-98.0); MONOCYTES # (AUTO) 0.9 K/uL (0.0-1.0); MONOCYTES % (AUTO) 11.5 % (1.7-9.3); NEUTROPHILS # (AUTO) 5.1 K/uL (1.8-7.7); NEUTROPHILS % (AUTO) 65.8 % (40.0-70.0); PLATELET COUNT (AUTO) 199 K/uL (130-430); RED BLOOD CELL COUNT(AUTO) 3.31 MIL/uL (4.2-6.2); RED CELL DISTRIBUTION WIDTH 16.7 % (9.0-15.0); WHITE BLOOD COUNT (AUTO) 7.7 K/uL (4.8-10.8)
[2020-08-06 08:04] LABS: ALBUMIN 2.5 g/dL (3.4-4.8); CALCIUM 9.3 mg/dL (8.4-11.0); CREATININE 2.19 mg/dL (0.55-1.30); TOTAL BILIRUBIN 0.5 mg/dL (0.0-1.0)
[2020-08-06 08:10] VITALS: BP_SYST 157
[2020-08-06] MEDS: LOSARTAN POTASSIUM 50 MG TABLET (COZAAR) PO SCH (09:01)
[2020-08-06] MEDS: PANTOPRAZOLE SODIUM 40 MG/VIAL (PROTONIX) IVP SCH ×2 (09:01→20:45)
[2020-08-06] MEDS: amLODIPine BESYLATE 10 MG TABLET PO SCH (09:02)
[2020-08-06] MEDS: THIAMINE HCL 100 MG TABLET PO SCH (09:02)
[2020-08-06] MEDS: CARVEDILOL 25 MG TABLET (COREG) PO SCH ×2 (09:02→20:45)
--- NOTE | 2020-08-06 09:30 | NUR ---
Patient in bed watching television. Patient not presenting any signs of acute distress.
[2020-08-06 12:28] VITALS: BP_SYST 133
--- NOTE | 2020-08-06 12:32 | NUR ---
Dr. Gallegos at bedside. Provided patient update. No new orders, possible discharge for tomorrow 08/07.
--- NOTE | 2020-08-06 14:28 | NUR ---
Patient in bed with eyes closed. Patient not presenting any signs of acute distress.
[2020-08-06 16:12] VITALS: BP_SYST 128
--- NOTE | 2020-08-06 19:05 | NUR ---
Closing Note Provided plan of care via sbar to receiving RN.
--- NOTE | 2020-08-06 19:25 | NUR ---
initial notes: awake, alert, watching tv. no pain, no sob, stable. ivf infusing to right picc line.explain plan of care, pt agree and uderstand. needs attended. call light in reach. will follow-up.
[2020-08-06 20:31] VITALS: BP_SYST 151
--- NOTE | 2020-08-06 22:05 | NUR ---
pt is still awake. watching tv. no pain, stable. needs attended.
[2020-08-07] VITALS: BP_SYST 150
--- NOTE | 2020-08-07 00:56 | NUR ---
sleeping, stable. vital sign. no pain.
--- NOTE | 2020-08-07 02:27 | NUR ---
sleeping, stable, no pain, ivf infusing well. call light with in reach.
[2020-08-07] MEDS: PIPERACILLIN/TAZO 2.25G/DEX-IS 50 ML IV SCH (02:56)
--- NOTE | 2020-08-07 04:10 | NUR ---
sleeping on his side, no pain,stable. ivf infusing well. call light with in reach.
[2020-08-07] MEDS: hydrALAZINE HCL 25 MG TABLET PO SCH ×3 (06:06→20:43)
--- NOTE | 2020-08-07 06:12 | NUR ---
pt wakes up, stable vital sign, took his am medication.needs attended.
--- NOTE | 2020-08-07 06:41 | NUR ---
closing: pt is resting, no pain and distress, stable. ivf infusing well. needs attended the whole shift, call light in reach. will sbar report to am rn.
[2020-08-07 06:46] LABS: BASOPHILS % (AUTO) 0.6 % (0.0-2.0); EOSINOPHILS # (AUTO) 0.5 K/uL (0.0-0.4); EOSINOPHILS % (AUTO) 6.2 % (0.0-4.0); HEMATOCRIT 33.6 % (36-54); HEMOGLOBIN 11.2 g/dL (14.0-18.0); LYMPHOCYTES # (AUTO) 1.3 K/uL (1.0-5.5); LYMPHOCYTES % (AUTO) 16.8 % (20.5-51.5); MEAN CORPUSCULAR HEMOGLOBIN 35 pg (27-31); MEAN CORPUSCULAR HGB CONC 33 % (32-36); MEAN CORPUSCULAR VOLUME 104 fL (79.0-98.0); MONOCYTES # (AUTO) 0.9 K/uL (0.0-1.0); MONOCYTES % (AUTO) 12.2 % (1.7-9.3); NEUTROPHILS % (AUTO) 64.2 % (40.0-70.0); PLATELET COUNT (AUTO) 272 K/uL (130-430); RED BLOOD CELL COUNT(AUTO) 3.24 MIL/uL (4.2-6.2); RED CELL DISTRIBUTION WIDTH 16.7 % (9.0-15.0); WHITE BLOOD COUNT (AUTO) 7.7 K/uL (4.8-10.8)
[2020-08-07 07:14] LABS: ALBUMIN 2.6 g/dL (3.4-4.8); CALCIUM 9.1 mg/dL (8.4-11.0); CREATININE 2.05 mg/dL (0.55-1.30); POTASSIUM 3.5 mmol/L (3.5-5.1); TOTAL BILIRUBIN 0.5 mg/dL (0.0-1.0)
--- NOTE | 2020-08-07 07:30 | NUR ---
AM ROUNDS: PATIENT LYING ON THE BED,AWAKE,ALERT AND ORIENTED X4. IV FLUIDS RUNNING AT RIGHT UPPER ARM PICC LINE,CLEAN AND DRY. CALL LIGHT WITH IN REACH. BED LOCKED AT LOWEST POSITION. NOT IN ANY DISTRESS.
[2020-08-07 08:05] VITALS: BP_SYST 146
[2020-08-07] MEDS: PANTOPRAZOLE SODIUM 40 MG/VIAL (PROTONIX) IVP SCH ×2 (08:24→20:42)
[2020-08-07] MEDS: amLODIPine BESYLATE 10 MG TABLET PO SCH (08:24)
[2020-08-07] MEDS: THIAMINE HCL 100 MG TABLET PO SCH (08:24)
[2020-08-07] MEDS: LOSARTAN POTASSIUM 50 MG TABLET (COZAAR) PO SCH (08:25)
[2020-08-07] MEDS: CARVEDILOL 25 MG TABLET (COREG) PO SCH ×2 (08:25→20:43)
--- NOTE | 2020-08-07 10:30 | NUR ---
RN ROUNDS: SLEEPING DURING ROUNDS. NO DISTRESS.
[2020-08-07 12:00] VITALS: BP_SYST 131; BP_SYST 145
--- NOTE | 2020-08-07 12:30 | NUR ---
RN ROUNDS: JUST ATE LUNCH. NO NEEDS THIS TIME.
--- NOTE | 2020-08-07 15:19 | NUR ---
MD ROUNDS: PATIENT FOR PT AND EVALUATION BY ORDER OF DR REESE.
[2020-08-07 16:00] VITALS: BP_SYST 142
--- NOTE | 2020-08-07 16:19 | NUR ---
RN ROUNDS: PATIENT SLEEPING DURING ROUNDS.STABLE.
[2020-08-07] MEDS: NACL 0.9% 1,000 ML IV SCH (18:27)
--- NOTE | 2020-08-07 18:45 | NUR ---
Closing Notes: Patient just started eating his dinner. Waiting for Pt eval and treatment. Call light with in reach. Bed locked at lowest position. No Acute distress.
--- NOTE | 2020-08-07 19:15 | NUR ---
OPENING NOTE BEDSIDE REPORT RECEIVED FROM DAYSHIFT NURSE. PATIENT RECEIVED LYING IN BED, SLEEPING AT THIS TIME. NO S/S OF ACUTE DISTRESS NOTED. BREATHING EVEN AND UNLABORED. HOB RAISED. IVF INFUSING WELL, IV SITE IS PATENT, NO SIGNS OF INFILTRATION OR INFECTION NOTED. HOB SLIGHTLY RAISED. BED IS LOCKED AND AT LOWEST POSITION. CALL LIGHT WITH PATIENT. WILL CONTINUE TO MONITOR.
[2020-08-07 20:00] VITALS: BP_SYST 154
--- NOTE | 2020-08-07 20:43 | NUR ---
HIGH BP/PAIN/URINAL/SOCKS/[facility] PATIENT IS AWAKE AT THIS TIME. COMPLAINS OF ABDOMINAL PAIN. VITALS TAKEN, BLOOD PRESSURE IS HIGH, 154/105, SCHEDULED MEDICATIONS ADMINISTERED. WILL MONITOR AND REASSESS BP. PRN MEDICATION GIVEN FOR PAIN. PATIENT'S URINAL EMPTIED, SOCKS PROVIDED BY RN. ALL NEEDS MET. CALL LIGHT WITH PATIENT. BED IS LOCKED AND AT LOWEST POSITION. WILL CONTINUE TO MONITOR.
[2020-08-07] MEDS: HYDROmorphone 2 MG/ML VIAL IVP PRN (20:44)
--- NOTE | 2020-08-07 23:00 | NUR ---
ROUNDS PATIENT IN BED, AWAKE, WATCHING TV, NO COMPLAINTS OF PAIN. BREATHING EVEN AND UNLABORED, IVF INFUSING WELL. CALL LIGHT WITH PATIENT. WILL CONTINUE TO MONITOR.
[2020-08-08] VITALS: BP_SYST 131
--- NOTE | 2020-08-08 01:00 | NUR ---
ROUNDS PATIENT IN BED, AWAKE, WATCHING TV. NO S/S OF ACUTE DISTRESS, PATIENT DENIES PAIN. BREATHING IS EVEN AND UNLABORED. IVF INFUSING WELL. CALL LIGHT WITH PATIENT. ALL NEEDS MET. WILL CONTINUE TO MONITOR.
--- NOTE | 2020-08-08 03:00 | NUR ---
ROUNDS PATIENT IN BED, ASLEEP AT THIS TIME. NO S/S OF ACUTE DISTRESS NOTED. BREATHING EVEN AND UNLABORED. CALL LIGHT WITH PATIENT. WILL CONTINUE TO MONITOR.
--- NOTE | 2020-08-08 05:00 | NUR ---
ROUNDS PATIENT IN BED SLEEPING COMFORTABLY. NO SIGNS OF DISCOMFORT NOTED. CHEST RISE AND FALL EVEN BILATERALLY. CALL LIGHT WITH PATIENT. WILL CONTINUE TO MONITOR.
[2020-08-08] MEDS: hydrALAZINE HCL 25 MG TABLET PO SCH ×2 (05:46→14:21)
--- NOTE | 2020-08-08 06:17 | NUR ---
CLOSING NOTE PATIENT IN BED, SLEEPING AT THIS TIME. NO S/S OF ACUTE DISTRESS NOTED. BREATHING IS EVEN AND UNLABORED. IVF INFUSING WELL, IV SITE IS PATENT, NO SIGNS OF INFILTRATION OR INFECTION NOTED. ALL NEEDS MET THROUGHOUT SHIFT. FALL AND SAFETY PRECAUTIONS MAINTAINED THROUGHOUT SHIFT. WILL CONTINUE TO MONITOR UNTIL PATIENT CARE IS ENDORSED TO ONCOMING DAYSHIFT NURSE.
[2020-08-08 06:49] LABS: BASOPHILS # (AUTO) 0.1 K/uL (0.0-0.2); BASOPHILS % (AUTO) 1.2 % (0.0-2.0); EOSINOPHILS # (AUTO) 0.4 K/uL (0.0-0.4); EOSINOPHILS % (AUTO) 4.8 % (0.0-4.0); HEMATOCRIT 33.9 % (36-54); HEMOGLOBIN 11.3 g/dL (14.0-18.0); LYMPHOCYTES # (AUTO) 1.3 K/uL (1.0-5.5); LYMPHOCYTES % (AUTO) 14.4 % (20.5-51.5); MEAN CORPUSCULAR HEMOGLOBIN 35 pg (27-31); MEAN CORPUSCULAR HGB CONC 33 % (32-36); MEAN CORPUSCULAR VOLUME 103 fL (79.0-98.0); MONOCYTES # (AUTO) 0.9 K/uL (0.0-1.0); MONOCYTES % (AUTO) 10.1 % (1.7-9.3); NEUTROPHILS # (AUTO) 6.2 K/uL (1.8-7.7); NEUTROPHILS % (AUTO) 69.5 % (40.0-70.0); PLATELET COUNT (AUTO) 345 K/uL (130-430); RED BLOOD CELL COUNT(AUTO) 3.28 MIL/uL (4.2-6.2); RED CELL DISTRIBUTION WIDTH 16.8 % (9.0-15.0); WHITE BLOOD COUNT (AUTO) 8.9 K/uL (4.8-10.8)
[2020-08-08 07:18] LABS: ALBUMIN 2.6 g/dL (3.4-4.8); CALCIUM 8.9 mg/dL (8.4-11.0); CREATININE 1.92 mg/dL (0.55-1.30); POTASSIUM 3.4 mmol/L (3.5-5.1); TOTAL BILIRUBIN 0.3 mg/dL (0.0-1.0)
--- NOTE | 2020-08-08 07:22 | NUR ---
AM ROUNDS: PATIENT AWAKE DURING ROUNDS. RECEIVED REPORT FROM NIGHT NURSE JUMANA.IV FLUIDS RUNNING AT RIGHT UPPER ARM PICC LINE INTACT. CALL LIGHT WITH IN REACH. BED LOCKED AT LOWEST POSITION.NO DISTRESS.
[2020-08-08 08:13] VITALS: BP_SYST 150
[2020-08-08] MEDS: amLODIPine BESYLATE 10 MG TABLET PO SCH (08:34)
[2020-08-08] MEDS: THIAMINE HCL 100 MG TABLET PO SCH (08:34)
[2020-08-08] MEDS: PANTOPRAZOLE SODIUM 40 MG/VIAL (PROTONIX) IVP SCH (08:34)
[2020-08-08] MEDS: CARVEDILOL 25 MG TABLET (COREG) PO SCH (08:35)
[2020-08-08] MEDS: LOSARTAN POTASSIUM 50 MG TABLET (COZAAR) PO SCH (08:35)
--- NOTE | 2020-08-08 10:24 | NUR ---
RN ROUNDS: PATIENT LYING ON THE BED SLEEPING. WAITING FOR PT EVALUATION AND TREATMENT.
--- NOTE | 2020-08-08 12:00 | NUR ---
LUNCH: LUNCH TRAY SERVE. PATIENT SITUATED AND EATING HIS MEAL. NO PROBLEM.
[2020-08-08 12:20] VITALS: BP_SYST 139
[2020-08-08] MEDS ORDERED: POTASSIUM CHLORIDE 20 MEQ TAB.PRT.SR PO ONE (14:15)
--- NOTE | 2020-08-08 14:25 | NUR ---
RN ROUNDS: ON SIDE LYING ON THE BED. STABLE.
[2020-08-08 16:00] VITALS: BP_SYST 133
--- NOTE | 2020-08-08 16:15 | NUR ---
RN ROUNDS: RESTING. NO DISTRESS.
--- NOTE | 2020-08-08 18:17 | NUR ---
DC ORDER: DR REESE CAME AND SAW PATIENT IN THE ROOM.WITH ORDERS DC HOME WITH PRESCRIPTIONS,DC PICC LINE AND F/U WITH PCP NEXT WEEK.
[2020-08-08 19:03] VITALS: BP_SYST 133
--- NOTE | 2020-08-08 19:25 | NUR ---
CLOSING NOTES: ENDORSED TO NIGHT NURSE MARIANNE,PATIENT DISCHARGE HOME WITH PRESCRIPTIONS . NO ACUTE DISTRESS.
--- NOTE | 2020-08-08 20:14 | NUR ---
D/C Patient home Patient given medication reconciliation form and D/C instructions. Exit Care provided. Patient verbalized understanding. MD discussed with patient the results and treatment provided. Ambulatory with steady gait for discharge to home. Patient in stable condition, ID band and tele box removed. MARCIN PICC line removed, catheter tip intact and dressing applied, no active bleeding, 39cm measured against chart. Medication Rx given. All belongings sent with patient. Addendum: 08/08/20 at 2017 by Yvette Dykes RN D/C'ray at 1944.
== END 2020-08-08 19:45 | disposition home or self-care (01) | DRG 282 ==
LOC: SED 15:42 → SIC 18:49 → SED 20:15 → SIC 21:29 → STU 08-05 06:09
PROVIDERS: ADMIT Family Medicine; ATTEND Family Medicine
PROC: 02HV33Z Insertion of Infusion Device into Superior Vena Cava, Percutaneous Approach (ICD-10-PCS; principal; 2020-08-02)
PROC: B548ZZA Ultrasonography of Superior Vena Cava, Guidance (ICD-10-PCS; 2020-08-02)
DX: K85.90 Acute pancreatitis without necrosis or infection, unspecified (principal); I16.9 Hypertensive crisis, unspecified; K70.9 Alcoholic liver disease, unspecified; F10.229 Alcohol dependence with intoxication, unspecified; I25.10 Atherosclerotic heart disease of native coronary artery without angina pectoris; I16.1 Hypertensive emergency; R77.8 Other specified abnormalities of plasma proteins; I42.6 Alcoholic cardiomyopathy; E86.0 Dehydration; I44.7 Left bundle-branch block, unspecified; I13.0 Hypertensive heart and chronic kidney disease with heart failure and stage 1 through stage 4 chronic kidney disease, or unspecified chronic kidney disease; N18.4 Chronic kidney disease, stage 4 (severe); Z20.828 Contact with and (suspected) exposure to other viral communicable diseases; E11.22 Type 2 diabetes mellitus with diabetic chronic kidney disease; F15.90 Other stimulant use, unspecified, uncomplicated; Z79.899 Other long term (current) drug therapy; I25.2 Old myocardial infarction; Z87.891 Personal history of nicotine dependence; I50.20 Unspecified systolic (congestive) heart failure; R65.10 Systemic inflammatory response syndrome (SIRS) of non-infectious origin without acute organ dysfunction; N17.0 Acute kidney failure with tubular necrosis
CPT/HCPCS: 36415; 71045; 76700-TC; 80048; 80053; 80074; 80076; 81000-TC; 82150-TC; 83690-TC; 83735-TC; 83880; 84100-TC; 84439; 84443-TC; 84484; 85025; 85379; 85610-TC; 85730-TC; 87081; 93005; 93306; 96374; 96375; 99285; C1751; C9113; G0378; G0482; J1170; J1630; J2060; J2543; J3490; J7030; J7120

== ENCOUNTER 2021-06-24 19:02 | Emergency (ER) | payer MEDICAID, SELFPAY ==
[~2021-06-24] VITALS: Ht 162.6 cm; Wt 68.0 kg
[~2021-06-24 19:02] MED LIST changes: -LIB10 PO
[2021-06-24 19:45] VITALS: BP_SYST 110
--- NOTE | 2021-06-24 21:42 | NUR ---
Patient to ER bed 5 to gown for evaluation. Side rails up.
--- NOTE | 2021-06-24 21:43 | NUR ---
Patient BIB by family from home. C/O abdominal pain x 2 days. Patient reported, had abdominal pain and nausea for 2 days. A/O,X4, abdominal pain, pain rate 9/10.
--- NOTE | 2021-06-24 21:50 | NUR ---
ER Dr. Figueredo at bedside examining patient.
[2021-06-24] MEDS ORDERED: NACL 0.9% 1,000 ML IV ONE (22:00)
[2021-06-24] MEDS ORDERED: MORPHINE 4 MG INJ. 4 MG/ML VIAL IVP ONE (22:00)
--- NOTE | 2021-06-24 22:30 | NUR ---
# 22 gauge angiocath placed to right forearm. Use of asceptic technique. Opsite placed over site. Blood return noted. Blood for lab drawn from site. Flushed with 10 cc of normal saline. No evidence of infiltration noted. Patient tolerated well.
[2021-06-24 22:35] LABS: CALCIUM 8.9 mg/dL (8.4-11.0); CREATININE 3.16 mg/dL (0.55-1.30); POTASSIUM 5.2 mmol/L (3.5-5.1)
[2021-06-24 22:39] LABS: BASOPHILS # (AUTO) 0.2 K/uL (0.0-0.2); EOSINOPHILS # (AUTO) 0.6 K/uL (0.0-0.4); EOSINOPHILS % (AUTO) 7.6 % (0.0-4.0); HEMATOCRIT 34.5 % (36-54); HEMOGLOBIN 11.5 g/dL (14.0-18.0); LYMPHOCYTES # (AUTO) 1.6 K/uL (1.0-5.5); MEAN CORPUSCULAR HEMOGLOBIN 37 pg (27-31); MEAN CORPUSCULAR HGB CONC 33 % (32-36); MEAN CORPUSCULAR VOLUME 109 fL (79.0-98.0); MONOCYTES # (AUTO) 0.4 K/uL (0.0-1.0); MONOCYTES % (AUTO) 5.1 % (1.7-9.3); NEUTROPHILS # (AUTO) 5.4 K/uL (1.8-7.7); NEUTROPHILS % (AUTO) 65.3 % (40.0-70.0); PLATELET COUNT (AUTO) 281 K/uL (130-430); RED BLOOD CELL COUNT(AUTO) 3.16 MIL/uL (4.2-6.2); RED CELL DISTRIBUTION WIDTH 14.6 % (9.0-15.0); WHITE BLOOD COUNT (AUTO) 8.2 K/uL (4.8-10.8)
[2021-06-24 22:41] LABS: ALBUMIN 3.3 g/dL (3.4-4.8); TOTAL BILIRUBIN 0.3 mg/dL (0.0-1.0)
--- NOTE | 2021-06-24 23:11 | NUR ---
Patient transported to radiology via wheelchair, accompanied by operator technician.
--- NOTE | 2021-06-25 00:12 | NUR ---
ER Dr. Mcconnell at bedside and explain treatment plan.
[2021-06-25] MEDS ORDERED: LORazepam 2 MG/ML VIAL IVP ONE ×2 (00:15→04:30)
[2021-06-25] MEDS ORDERED: NACL 0.9% 1,000 ML IV ONE ×2 (00:15→04:30)
--- NOTE | 2021-06-25 00:42 | NUR ---
COVID-19 swabs collected and sent to lab.
[2021-06-25] MEDS ORDERED: SODIUM ZIRCONIUM CYCLOSILICATE 10 GM POWD.PACK PO ONE (00:45)
--- NOTE | 2021-06-25 07:30 | NUR ---
Pt. sleeping, no signs of distress
--- NOTE | 2021-06-25 08:45 | NUR ---
Pt. awake, am assessment done, pt. visibly shaky, requesting breakfast, Dr. Naylor would like pt. to remain NPO, except water, water given, POC reviewed.
--- NOTE | 2021-06-25 10:12 | NUR ---
PtSwathi christianson states drinks everyday, contributes this to no alcohol, requesting medication.
[2021-06-25] MEDS ORDERED: LORazepam 1 MG TABLET PO ONE (10:15)
--- NOTE | 2021-06-25 10:44 | NUR ---
Report to Kaden at [facility] in [place]
--- NOTE | 2021-06-25 10:46 | NUR ---
Report to Rai from [facility], ACLS transfer
[2021-06-25 10:53] VITALS: BP_SYST 142
--- NOTE | 2021-06-25 11:04 | NUR ---
Patient to be transferred to [facility] in [place]. Is being transferred due to insurance acceptance. Receiving facility has accepting physician and available space. ER physician has signed transfer form. Patient or responsible green party has agreed to transfer and signed form. Patient belongings inventoried and will be sent with patient. Copy of nursing notes, lab reports, EKG, Physicians Orders and X-rays to be sent with patient. Report called to Kaden at receiving facility. Receiving physician is Dr. [place]. [facility] [place] and is here.
== END 2021-06-25 11:02 | disposition short-term general hospital (02) ==
LOC: SED 19:02
DX: K85.90 Acute pancreatitis without necrosis or infection, unspecified (principal); N17.9 Acute kidney failure, unspecified; E87.5 Hyperkalemia; F10.10 Alcohol abuse, uncomplicated; I10 Essential (primary) hypertension; Z20.822 Contact with and (suspected) exposure to COVID-19; Y90.9 Presence of alcohol in blood, level not specified; Z79.899 Other long term (current) drug therapy
CPT/HCPCS: 36415; 74176; 76376; 80053; 83690; 85025; 87426; 93005; 96361 ×2; 96374; 96375; 96376; 99285; J2060; J2270; J7030 ×2

== ENCOUNTER 2021-07-01 16:23 | Emergency (ER) | payer MEDICAID, SELFPAY ==
[~2021-07-01] VITALS: Ht 162.6 cm; Wt 68.0 kg
--- NOTE | 2021-07-01 16:25 | NUR ---
Patient to ER bed 1 to gown for evaluation. Side rails up.
[2021-07-01 16:35] VITALS: BP_SYST 94
--- NOTE | 2021-07-01 16:35 | NUR ---
EKG GIVEN TO
--- NOTE | 2021-07-01 16:35 | NUR ---
PT CALLED 911 AFTER FEELING DIZZY WHILE AT HOME. PT REPORTS TAKING HIS BP MEDS W/OUT CHECKING IS BP. PT REPORTS FEELING INCREASINGLY WEAK FOR THE PAST WEEK AND HAS NOT BEEN INTAKING ADEQUATE PO. MATERIALS BUYER PLACED. PT ARRIVES W/ IV SITES 18G X 2.
--- NOTE | 2021-07-01 16:38 | NUR ---
LADARIUS Ramirez at bedside examining patient.
[2021-07-01] MEDS ORDERED: LR 1,000 ML IV ONE ×2 (16:45)
--- NOTE | 2021-07-01 16:50 | NUR ---
LR X 2 L AND MAG RIDER CURRENTLY INFUSING PER MD ORDER
[2021-07-01] MEDS ORDERED: MAGNESIUM SULFATE 1 GM/2 ML VIAL IVP ONE (17:00)
[2021-07-01] MEDS ORDERED: KETOROLAC TROMETHAMINE 60 MG/2 ML VIAL IM ONE (17:18)
[2021-07-01 17:19] LABS: BASOPHILS # (AUTO) 0.1 K/uL (0.0-0.2); BASOPHILS % (AUTO) 0.6 % (0.0-2.0); EOSINOPHILS % (AUTO) 0.3 % (0.0-4.0); HEMATOCRIT 35.8 % (36-54); HEMOGLOBIN 11.9 g/dL (14.0-18.0); LYMPHOCYTES # (AUTO) 1.2 K/uL (1.0-5.5); MEAN CORPUSCULAR HEMOGLOBIN 36 pg (27-31); MEAN CORPUSCULAR HGB CONC 33 % (32-36); MEAN CORPUSCULAR VOLUME 108 fL (79.0-98.0); MONOCYTES % (AUTO) 8.2 % (1.7-9.3); NEUTROPHILS # (AUTO) 10.1 K/uL (1.8-7.7); NEUTROPHILS % (AUTO) 80.9 % (40.0-70.0); PLATELET COUNT (AUTO) 300 K/uL (130-430); RED CELL DISTRIBUTION WIDTH 14.4 % (9.0-15.0); WHITE BLOOD COUNT (AUTO) 12.5 K/uL (4.8-10.8)
[2021-07-01 17:26] LABS: INR 1.1 (0.80-1.20); PROTHROMBIN TIME 11.6 SECS (9.5-12.5)
[2021-07-01 17:30] LABS: CALCIUM 8.2 mg/dL (8.4-11.0); CREATININE 4.98 mg/dL (0.55-1.30); POTASSIUM 3.7 mmol/L (3.5-5.1)
[2021-07-01 17:36] LABS: ALBUMIN 3.2 g/dL (3.4-4.8); BILIRUBIN,DIRECT 0.2 mg/dL (0.0-0.3); TOTAL BILIRUBIN 0.4 mg/dL (0.0-1.0)
--- NOTE | 2021-07-01 17:50 | NUR ---
RAPID COVID SWAB COLLECTED AND SENT TO THE LAB
--- NOTE | 2021-07-01 19:22 | NUR ---
CARE ENDORSED TO NGOZI MAURO
--- NOTE | 2021-07-01 20:12 | NUR ---
still awaiting official bed assignment at [facility]
[2021-07-01] MEDS ORDERED: fentaNYL CITRATE/PF 100 MCG/2 ML AMP ONE (20:54)
--- NOTE | 2021-07-01 21:35 | NUR ---
VSS no s/s of acute distress Resting on gurney rails up
--- NOTE | 2021-07-01 22:45 | NUR ---
Pt A/A/O x 4 walked to and from Restroom by himself, well tolerated
--- NOTE | 2021-07-01 23:57 | NUR ---
[facility] on there way, ETA of 0032
--- NOTE | 2021-07-02 00:50 | NUR ---
S/W So. [facility] [place] for room 227-1 ( Liza ) report given
--- NOTE | 2021-07-02 00:58 | NUR ---
Patient to be transferred to [facility]. Is being transferred due to higher level of care. Receiving facility has accepting physician and available space. ER physician has signed transfer form. Patient or responsible libertarian has agreed to transfer and signed form. Patient belongings inventoried and will be sent with patient. Copy of nursing notes, lab reports, EKG, Physicians Orders and X-rays to be sent with patient. Report called to at receiving facility. Receiving physician is Dr. Minor. [facility] at bedside ready for immdiate transport
[2021-07-02 00:59] VITALS: BP_SYST 96
== END 2021-07-02 00:58 | disposition short-term general hospital (02) ==
LOC: SED 16:23
DX: I21.4 Non-ST elevation (NSTEMI) myocardial infarction (principal); N17.9 Acute kidney failure, unspecified; R55 Syncope and collapse; I10 Essential (primary) hypertension; Z79.899 Other long term (current) drug therapy; Z20.822 Contact with and (suspected) exposure to COVID-19
CPT/HCPCS: 36415; 36600; 70450; 71045; 74176; 76376; 80048; 80076; 82803; 83605; 83690; 83880; 84484; 85025; 85379; 85610; 87040; 87426; 93005; 96361; 96374; 99291; G0482; J1885; J3010; J3475

== ENCOUNTER 2021-09-28 17:01 | Inpatient (IN) | payer MEDICAID, SELFPAY ==
[~2021-09-28] VITALS: Ht 162.6 cm; Wt 61.7 kg
[2021-09-28 17:02] VITALS: BP_SYST 108
--- NOTE | 2021-09-28 17:10 | NUR ---
Patient to ER bed 3 to gown for evaluation. Side rails up. Report given to CHRIS MAURO.
--- NOTE | 2021-09-28 17:18 | NUR ---
PT COMES TO ER WITH WORSENING ANTERIOR CHEST WALL PAIN WITH ASSOCIATED INTERMITTENT SOB RADIATING TO EPIGASTRIC AREA X 1 WEEK. +N/V, INTERMITTTENT FEVERS. DENIES DIARRHEA. NO DYSURIA. RESP EVEN AND UNLABORED, ON RA @99%. ABD ROUND/SOFT, NT TO PALAPOTION. SKIN W/D/I. PT PLACED ON MONITOR, SAFETY PRECAUTIONS IN PLACE.
--- NOTE | 2021-09-28 17:24 | NUR ---
DR LARSON IN ROOM FOR EXAM.
--- NOTE | 2021-09-28 17:39 | NUR ---
PT GOING TO CT SCAN
[2021-09-28 18:19] LABS: BASOPHILS # (AUTO) 0.1 K/uL (0.0-0.2); BASOPHILS % (AUTO) 0.3 % (0.0-2.0); EOSINOPHILS % (AUTO) 0.1 % (0.0-4.0); HEMATOCRIT 37.3 % (36-54); HEMOGLOBIN 12.3 g/dL (14.0-18.0); LYMPHOCYTES # (AUTO) 0.9 K/uL (1.0-5.5); LYMPHOCYTES % (AUTO) 4.9 % (20.5-51.5); MEAN CORPUSCULAR HEMOGLOBIN 35 pg (27-31); MEAN CORPUSCULAR HGB CONC 33 % (32-36); MEAN CORPUSCULAR VOLUME 105 fL (79.0-98.0); MONOCYTES # (AUTO) 0.7 K/uL (0.0-1.0); MONOCYTES % (AUTO) 3.9 % (1.7-9.3); NEUTROPHILS # (AUTO) 16.9 K/uL (1.8-7.7); NEUTROPHILS % (AUTO) 90.8 % (40.0-70.0); PLATELET COUNT (AUTO) 310 K/uL (130-430); RED BLOOD CELL COUNT(AUTO) 3.55 MIL/uL (4.2-6.2); RED CELL DISTRIBUTION WIDTH 14.4 % (9.0-15.0); WHITE BLOOD COUNT (AUTO) 18.6 K/uL (4.8-10.8)
[2021-09-28 18:32] LABS: CALCIUM 7.9 mg/dL (8.4-11.0); CREATININE 2.47 mg/dL (0.55-1.30); POTASSIUM 3.5 mmol/L (3.5-5.1)
[2021-09-28 18:38] LABS: ALBUMIN 3.1 g/dL (3.4-4.8); BILIRUBIN,DIRECT 0.4 mg/dL (0.0-0.3); TOTAL BILIRUBIN 0.8 mg/dL (0.0-1.0)
--- NOTE | 2021-09-28 19:07 | NUR ---
REPORT GIVEN TO JUANCHO MAURO.
[2021-09-28] MEDS ORDERED: ASPIRIN 325 MG TABLET PO ONE (19:15)
--- NOTE | 2021-09-28 19:45 | NUR ---
RECEIVED REPORT KIMBERLY PEREZ RN
--- NOTE | 2021-09-28 20:00 | NUR ---
MEDICATED PT WITH ASA PER ER MD. PT HAS ELEVATED TROPONIN. STILL HAVING LEFT CHEST PAIN RADIATING INTO THE BACK 08/05. REMAINS ON BEDSIDE MONITOR ER MD AWARE OF CONTINUED PAIN.
[2021-09-28] MEDS ORDERED: ONDANSETRON HCL 4 MG/2 ML VIAL IVP ONE (20:15)
[2021-09-28] MEDS ORDERED: MORPHINE 2 MG/ML INJ. SYRINGE IVP ONE (20:15)
--- NOTE | 2021-09-28 20:19 | NUR ---
NO UA COLLECTED, PROVIDE WITH URINAL AND MORE WATER.
--- NOTE | 2021-09-28 20:24 | NUR ---
PT UP AND AMBULATED TO RESTROOM WITH STEADY GAIT. PT STATES HE HAS BEEN HAVING DIARRHEA AND DOES NOT WANT BED PAIN
[2021-09-28 20:59] LABS: BILIRUBIN,URINE NEGATIVE (NEGATIVE); BLOOD, URINE 2+ (NEGATIVE); COLOR,URINE YELLOW (YELLOW); GLUCOSE,URINE NEGATIVE (NEGATIVE); KETONES,URINE TRACE (NEGATIVE); LEUKOCYTE ESTERASE ,URINE NEGATIVE (NEGATIVE); NITRITE, URINE NEGATIVE (NEGATIVE); PROTEIN URINE 2+ (NEGATIVE); UROBILINOGEN,URINE 0.2 (0.2-1.0)
[2021-09-28 21:09] LABS: CLARITY/URINE HAZY (CLEAR)
[2021-09-28 21:11] LABS: BACTERIA,URINE FEW /HPF (None Seen); MUCUS,URINE None Seen /LPF (None Seen); WBC,URINE 0-3 /HPF (0-3)
--- NOTE | 2021-09-28 21:16 | NUR ---
UA COLLECTED AND GIVEN TO CLINICAL NURSE SPECIALIST
[2021-09-28] MEDS ORDERED: HYDROcodone/ACETAMIN 10-325 MG TAB PO PRN (22:00)
[2021-09-28] MEDS ORDERED: HYDROcodone/ACETAMIN 5-325 MG TAB (NORCO/ VICODIN) PO PRN (22:00)
[2021-09-28] MEDS: MORPHINE 2 MG/ML INJ. SYRINGE IVP PRN (22:45)
--- NOTE | 2021-09-28 22:45 | NUR ---
PT CONTINUES TO HAVE CHEST PAIN RADIATING TO BACK REQUESTED MORE MEDS, PAIN 7/10. WILL MEDICATE ORDERED
[2021-09-29] MEDS ORDERED: PIPERACILLIN/TAZO 3.375/DEX-IS 50 ML IV SCH
--- NOTE | 2021-09-29 00:10 | NUR ---
PT RESTING MORE COMFORTABLY, REMAINS ON BEDSIDE MONITOR, STILL WAITING FOR ROOM TO BE ADMITTED.
[2021-09-29] MEDS: NACL 0.9% 1,000 ML IV SCH ×2 (00:22→10:44)
[2021-09-29] MEDS ORDERED: FURO-150 PO (01:14)
[2021-09-29] MEDS ORDERED: LISI40TA13 PO (01:14)
[2021-09-29] MEDS ORDERED: LOSA100T3 PO (01:14)
[2021-09-29] MEDS ORDERED: ISMO20 PO (01:14)
[2021-09-29] MEDS ORDERED: PIPERACILLIN/TAZOBACTAM 2.25 GM VIAL IV ONE ×2 (01:23→05:20)
[2021-09-29] MEDS: PIPERACILLIN/TAZOBACTAM 2.25 GM in NS 50 ML IV SCH ×4 (01:24→18:08)
--- NOTE | 2021-09-29 02:01 | NUR ---
Patient will be admitted to care of [facility]. Admitted to TELE unit. Will go to room 102A. Belongings list completed. Complete and up to date summary report printed. SBAR report to be given at bedside with opportunity for questions.
--- NOTE | 2021-09-29 02:02 | NUR ---
PT WAS ABLE TO AMBULATE TO BED WITHOUT ANY ASSISTANCE AND STEADY GAIT, DENIED ANY WEAKNESS DIZZINESS OR SOB.
[2021-09-29 02:05] VITALS: BP_SYST 102
--- NOTE | 2021-09-29 02:34 | NUR ---
Received patient from ER nurse. Patient is AA&Ox4 able to make needs known currently denies chest pain or SOB. Chest rise is even and unlabored on RA with CTA. Normal hear sounds present S1 & S2 present. Active bowel sounds x4, denies pain with palpation. No current skin issues were noted. Patient is able to ambulate to rest room a needed with out assist. PIV is present in RAC 22G and infusing NS at 75 ml/hr. Patient is cooperative, has been orientated to room and call light use. Patient verbalized understanding. Will continue to monitor.
--- NOTE | 2021-09-29 05:04 | NUR ---
CONSULTATION PAGED/CALLED Reason for Consultation: ELEVATED TROP Person Who was Notified: MASOOD Consulting Physician: REE Farm Butcher Specialty: Ordering Physician: CAR
--- NOTE | 2021-09-29 06:42 | NUR ---
Patient is currently resting with no s/s of distress at this time. Patient is currently receiving Zosyn 2.25gm IV at 100ml/hr and is tolerating the medication well no s/s of adverse reaction. Patient is able to make needs known. Call light is within reach, bed is locked, in the lowest position with bed rails up. Will differ further care to AM shift for continuity of care.
[2021-09-29 07:06] LABS: BASOPHILS % (AUTO) 0.4 % (0.0-2.0); EOSINOPHILS # (AUTO) 0.1 K/uL (0.0-0.4); EOSINOPHILS % (AUTO) 0.8 % (0.0-4.0); HEMATOCRIT 30.2 % (36-54); HEMOGLOBIN 9.9 g/dL (14.0-18.0); LYMPHOCYTES # (AUTO) 0.7 K/uL (1.0-5.5); LYMPHOCYTES % (AUTO) 5.5 % (20.5-51.5); MEAN CORPUSCULAR HEMOGLOBIN 34 pg (27-31); MEAN CORPUSCULAR HGB CONC 33 % (32-36); MEAN CORPUSCULAR VOLUME 105 fL (79.0-98.0); MONOCYTES # (AUTO) 0.8 K/uL (0.0-1.0); MONOCYTES % (AUTO) 6.7 % (1.7-9.3); NEUTROPHILS # (AUTO) 10.4 K/uL (1.8-7.7); NEUTROPHILS % (AUTO) 86.6 % (40.0-70.0); PLATELET COUNT (AUTO) 266 K/uL (130-430); RED BLOOD CELL COUNT(AUTO) 2.88 MIL/uL (4.2-6.2); RED CELL DISTRIBUTION WIDTH 14.3 % (9.0-15.0)
[2021-09-29 07:55] LABS: ANION GAP 15 (5-15); CHLORIDE 100 mmol/L (98-107); CREATININE 2.51 mg/dL (0.55-1.30); GLUCOSE 107 mg/dL (70-99); PHOSPHORUS 3.8 mg/dL (2.7-4.5); POTASSIUM 3.7 mmol/L (3.5-5.1); SODIUM SERUM 135 mmol/L (136-145); UREA NITROGEN, BLOOD 39 mg/dL (8-21)
[2021-09-29 08:00] VITALS: BP_SYST 135
--- NOTE | 2021-09-29 08:00 | NUR ---
NOTES PATIENT AAOX 4. HAS IV ACCESS ON THE RT WRIST WITH NORMAL SALINE AT 75CC/HR INFUSING ON WELL. LUNGS BILATERALLY CLEAR AND ABDOMEN SOFT AND NON DISTENDED. CALL LIGHTS WITHIN REACH. BED LOW POSITION, ALARMED AND LOCKED. WILL CONTINUE TO MONITOR PATIENTS STATUS.
[2021-09-29 08:11] LABS: GFR AFRICAN AMERICAN 35 mL/min (>90)
--- NOTE | 2021-09-29 09:00 | NUR ---
DR YOON IS AWARE OF CALCIUM AND MAGNESIUM LEVEL. MADE ORDERS
[2021-09-29 09:04] LABS: CALCIUM 6.6 mg/dL (8.4-11.0)
[2021-09-29] MEDS ORDERED: CALCIUM GLUCONATE 1 GM/10 ML VIAL IVP ONE (09:30)
[2021-09-29] MEDS ORDERED: MAGNESIUM SULFATE IN WATER 100 ML IV ONE (09:30)
[2021-09-29 09:59] LABS: BASOPHILS % (AUTO) 0.4 % (0.0-2.0); EOSINOPHILS # (AUTO) 0.1 K/uL (0.0-0.4); EOSINOPHILS % (AUTO) 0.9 % (0.0-4.0); HEMATOCRIT 30.1 % (36-54); HEMOGLOBIN 9.9 g/dL (14.0-18.0); LYMPHOCYTES # (AUTO) 0.8 K/uL (1.0-5.5); LYMPHOCYTES % (AUTO) 6.6 % (20.5-51.5); MEAN CORPUSCULAR HEMOGLOBIN 34 pg (27-31); MEAN CORPUSCULAR HGB CONC 33 % (32-36); MEAN CORPUSCULAR VOLUME 104 fL (79.0-98.0); MONOCYTES % (AUTO) 8.1 % (1.7-9.3); PLATELET COUNT (AUTO) 277 K/uL (130-430); RED CELL DISTRIBUTION WIDTH 14.4 % (9.0-15.0); WHITE BLOOD COUNT (AUTO) 11.9 K/uL (4.8-10.8)
[2021-09-29] MEDS: ASPIRIN 81 MG TAB.CHEW PO SCH (10:44)
[2021-09-29] MEDS ORDERED: LORazepam 2 MG/ML VIAL IVP PRN (10:45)
--- NOTE | 2021-09-29 10:50 | NUR ---
COMPLAINING OF CHEST PAIN. GRADE 5 NO RADIATION NOTED.
--- NOTE | 2021-09-29 10:51 | NUR ---
DR KEENAN MADE AWARE TO TROPONIN 0.149.
[2021-09-29] MEDS: MORPHINE 2 MG/ML INJ. SYRINGE IVP PRN (10:58)
--- NOTE | 2021-09-29 11:19 | NUR ---
CONSULTATION PAGED/CALLED Reason for Consultation: [] HA Person Who was Notified: [] DR CORRALES Consulting Physician: [] DR CORRALES Knowledge Manager Specialty: [] NEPHRO Ordering Physician: [] Michel FLAHERTY
--- NOTE | 2021-09-29 11:45 | NUR ---
PT SET BED ALARM OFF GETTING OUT OF BED TO USE RESTROOM. PT REEDUCATED TO USE CALL LIGHT IF HE NEEDS ASSISTANCE. PT DENIED ANY CHEST PAIN, OR SOB. PT CALM AND COOPERATIVE. PT WENT BACK TO SLEEP. ALL NEEDS MEET AT THIS TIME. WILL CONTINUE TO MONITOR. Addendum: 09/30/21 at 0414 by Nick Dowling RN WRONG TIME. FOR [id number]
[2021-09-29 12:31] VITALS: BP_SYST 110
[2021-09-29 16:23] VITALS: BP_SYST 120
[2021-09-29] MEDS: chlordiazePOXIDE HCL 25 MG CAPSULE PO SCH ×2 (16:46→21:51)
--- NOTE | 2021-09-29 16:50 | NUR ---
PATIENT VERBALIZED MORE STABLE AT THIS TIME. NO CHEST PAIN NOTED. URINE SPECIMEN GIVEN FOR URINALYSIS PATIENT AWARE AND WILL CALL ME SOON IF URINE IS AVAILABLE.
--- NOTE | 2021-09-29 18:12 | NUR ---
URINE SENT URINALYSIS AT THIS TIME.
[2021-09-29 18:36] LABS: BILIRUBIN,URINE NEGATIVE (NEGATIVE); BLOOD, URINE 3+ (NEGATIVE); COLOR,URINE YELLOW (YELLOW); GLUCOSE,URINE NEGATIVE (NEGATIVE); KETONES,URINE NEGATIVE (NEGATIVE); LEUKOCYTE ESTERASE ,URINE NEGATIVE (NEGATIVE); NITRITE, URINE NEGATIVE (NEGATIVE); PROTEIN URINE 1+ (NEGATIVE); UROBILINOGEN,URINE 0.2 (0.2-1.0)
--- NOTE | 2021-09-29 18:47 | NUR ---
IV ANTIBIOTIC GIVEN.
--- NOTE | 2021-09-29 18:49 | NUR ---
PATIENT TOLERATING THE CLEAR LIQUID. NO S/S OF PAIN NOR DISTRESS NOTED. IV ACCESS STILL PATENT/DRY.
[2021-09-29 19:07] LABS: CLARITY/URINE HAZY (CLEAR)
[2021-09-29 19:13] LABS: BACTERIA,URINE FEW /HPF (None Seen); RBC,URINE 20-50 /HPF (0-3); WBC,URINE 0-3 /HPF (0-3)
--- NOTE | 2021-09-29 19:15 | NUR ---
RECEIVED BEDSIDE REPORT. PT IN BED ASLEEP WITH EYES CLOSED. RR EVEN AND UNLABORED ON RA. HOB ELEVATED. SEIZURE PRECAUTIONS IN PLACE. BED RAILS UPX2. ALL NEEDS MEET AT THIS TIME. CALL LIGHT WITHIN REACH. WILL CONTINUE TO MONITOR.
[2021-09-29 19:16] LABS: BARBITURATE, URINE NEGATIVE (NEG <=200); BENZODIAZEPINE, URINE NEGATIVE (NEG <=150); CANNABINOID, URINE NEGATIVE (NEG <=50); COCAINE, URINE NEGATIVE (NEG <=150); METHAMPHETAMINES SCREEN,URINE NEGATIVE (NEG <=500); OPIATE, URINE POSITIVE (NEG <=100); PHENCYCLIDINE SCREEN,URINE NEGATIVE (NEG <=25); UR TRICYCLIC ANTIDEPRESSANTS NEGATIVE (NEG <=300); URINE AMPHETAMINE NEGATIVE (NEG <=500); URINE METHADONE NEGATIVE (NEG <=200); URINE OXYCODONE SCREEN NEGATIVE (NEG <=100); URINE PROPOXYPHENE SCREEN NEGATIVE (NEG <=300)
[2021-09-29 21:49] VITALS: BP_SYST 133
[2021-09-29] MEDS: CARVEDILOL 25 MG TABLET (COREG) PO SCH (21:51)
--- NOTE | 2021-09-29 23:45 | NUR ---
PT SET BED ALARM OFF GETTING OUT OF BED TO USE RESTROOM. PT REEDUCATED TO USE CALL LIGHT IF HE NEEDS ASSISTANCE. PT DENIED ANY CHEST PAIN, OR SOB. PT CALM AND COOPERATIVE. PT WENT BACK TO SLEEP. ALL NEEDS MEET AT THIS TIME. WILL CONTINUE TO MONITOR.
[2021-09-30] MEDS: NACL 0.9% 1,000 ML IV SCH ×2 (00:26→14:40)
[2021-09-30] MEDS: PIPERACILLIN/TAZOBACTAM 2.25 GM in NS 50 ML IV SCH ×4 (00:26→16:54)
[2021-09-30 00:30] VITALS: BP_SYST 130
--- NOTE | 2021-09-30 06:54 | NUR ---
PT CALM THROUGH OUT NIGHT. PT DENIES CHEST PAIN OR PRESSURE. HOB ELEVATED. SEIZURE PRECAUTIONS IN PLACE. CALL LIGHT WITHIN REACH. BED LOCKED IN LOWEST POSITION. BED ALARM. WILL ENDORSE CARE TO DAY RN.
[2021-09-30 07:42] LABS: BASOPHILS % (AUTO) 0.5 % (0.0-2.0); EOSINOPHILS # (AUTO) 0.2 K/uL (0.0-0.4); EOSINOPHILS % (AUTO) 2.3 % (0.0-4.0); HEMATOCRIT 28.8 % (36-54); HEMOGLOBIN 9.5 g/dL (14.0-18.0); LYMPHOCYTES # (AUTO) 1.2 K/uL (1.0-5.5); MEAN CORPUSCULAR HEMOGLOBIN 35 pg (27-31); MEAN CORPUSCULAR HGB CONC 33 % (32-36); MEAN CORPUSCULAR VOLUME 106 fL (79.0-98.0); MONOCYTES % (AUTO) 12.2 % (1.7-9.3); PLATELET COUNT (AUTO) 289 K/uL (130-430); RED BLOOD CELL COUNT(AUTO) 2.72 MIL/uL (4.2-6.2); RED CELL DISTRIBUTION WIDTH 14.2 % (9.0-15.0); WHITE BLOOD COUNT (AUTO) 8.5 K/uL (4.8-10.8)
[2021-09-30 08:20] VITALS: BP_SYST 136
--- NOTE | 2021-09-30 08:21 | NUR ---
alert, oriented, ambulatory to the bathroom, complained of " some discomfort on the chest, mid sternum, but not severe enough to get pain. " will let us know when needs pain meds
[2021-09-30 08:22] LABS: ALBUMIN 2.1 g/dL (3.4-4.8); CALCIUM 7.5 mg/dL (8.4-11.0); POTASSIUM 3.8 mmol/L (3.5-5.1); THYROID STIMULATING HORMONE 0.5 uIu/mL (0.36-3.74); TOTAL BILIRUBIN 0.4 mg/dL (0.0-1.0)
[2021-09-30] MEDS: PANTOPRAZOLE SODIUM 40 MG TAB PO SCH (08:32)
[2021-09-30] MEDS: NEPHROVITE, (FOLIC ACID/VITAMIN B COMP W-C 1 TAB) PO SCH (08:32)
[2021-09-30] MEDS: chlordiazePOXIDE HCL 25 MG CAPSULE PO SCH ×3 (08:33→21:01)
[2021-09-30] MEDS: THIAMINE HCL 100 MG TABLET PO SCH (08:33)
[2021-09-30] MEDS: CARVEDILOL 25 MG TABLET (COREG) PO SCH ×2 (08:33→21:02)
[2021-09-30] MEDS: amLODIPine BESYLATE 5 MG TABLET PO SCH (08:34)
[2021-09-30] MEDS: ASPIRIN 81 MG TAB.CHEW PO SCH (08:34)
[2021-09-30] MEDS: MORPHINE 2 MG/ML INJ. SYRINGE IVP PRN (11:10)
--- NOTE | 2021-09-30 11:39 | NUR ---
1105 c/o of chest pain, specifically asking for morphine, when suggested whether he would want [place]. 2mg mso4 ivp given for the pain, scaled 7-06/05 seen by nephro, dr Delcid, patient's magnesium level yesterday 1.0, no redrawn today. Mag level ordered stat, and will call to see whether patient needs the replacement of magnesium
[2021-09-30 12:00] VITALS: BP_SYST 118
[2021-09-30 16:00] VITALS: BP_SYST 122
--- NOTE | 2021-09-30 17:04 | NUR ---
mg level when added on to the blood drawn this am, now 2.0 seen by attending, Lipase up compared to yesterday draw, advised NPO now until tomorrow. out of bed, walked in the hallway x 3 times, " gas pain , he claimed" Continue with ivf as instructed.
--- NOTE | 2021-09-30 19:40 | NUR ---
closing note Patient resting in bed, awke, AOx4. No distress and nonlabored breathing on room air. He reports he has been walking to restroom and bed alarm is off. He was witness walking with steady gait. Seizure pads on top rails. Bed is locked in lowest position, and demonstrates use of call light. Updated board and reviewed plan of care.
[2021-09-30 20:00] VITALS: BP_SYST 146
--- NOTE | 2021-09-30 21:08 | NUR ---
chest pain / meds patient reporting chest pain 5/10 and [place] given as ordered, wctm. Scheduled meds given with small sip of water.
[2021-10-01 00:25] VITALS: BP_SYST 133
--- NOTE | 2021-10-01 01:30 | NUR ---
IV START / antibiotic Patient accidently pulled out IV. New IV was started w/ assistance of Charge nurse. IV to RFA, # 22 was successfully inserted on third attempt. Blood returned noted, patient tolerated. Resumed fluids and administered due antibiotic; reviewed side effects and he verbalized understanding.
[2021-10-01] MEDS: PIPERACILLIN/TAZOBACTAM 2.25 GM in NS 50 ML IV SCH ×3 (01:40→13:48)
[2021-10-01] MEDS: NACL 0.9% 1,000 ML IV SCH (04:53)
--- NOTE | 2021-10-01 04:57 | NUR ---
IVF/ laboratory sampler laboratory sampler at bed side for lab draw with no issues. IVF fluids hung new bag. site monitored no noted redness or swelling infusing well.
[2021-10-01 06:11] LABS: BASOPHILS % (AUTO) 0.5 % (0.0-2.0); EOSINOPHILS # (AUTO) 0.3 K/uL (0.0-0.4); EOSINOPHILS % (AUTO) 3.9 % (0.0-4.0); HEMATOCRIT 30.2 % (36-54); HEMOGLOBIN 9.9 g/dL (14.0-18.0); LYMPHOCYTES # (AUTO) 1.4 K/uL (1.0-5.5); LYMPHOCYTES % (AUTO) 15.5 % (20.5-51.5); MEAN CORPUSCULAR HEMOGLOBIN 35 pg (27-31); MEAN CORPUSCULAR HGB CONC 33 % (32-36); MEAN CORPUSCULAR VOLUME 105 fL (79.0-98.0); MONOCYTES # (AUTO) 0.8 K/uL (0.0-1.0); NEUTROPHILS # (AUTO) 6.2 K/uL (1.8-7.7); NEUTROPHILS % (AUTO) 71.1 % (40.0-70.0); PLATELET COUNT (AUTO) 324 K/uL (130-430); RED BLOOD CELL COUNT(AUTO) 2.87 MIL/uL (4.2-6.2); WHITE BLOOD COUNT (AUTO) 8.7 K/uL (4.8-10.8)
[2021-10-01 06:28] LABS: CALCIUM 8.7 mg/dL (8.4-11.0); CREATININE 1.7 mg/dL (0.55-1.30); POTASSIUM 4.1 mmol/L (3.5-5.1)
--- NOTE | 2021-10-01 06:47 | NUR ---
closing note Patient resting in bed, eyes closed, yet arousable. No distress and nonlabored breathing on 1L NC. Presently he denies chest pain and reports he is comfortable. Due antibiotic administered and infusing well. Needs met throughout shift, safety and seizure precaution in place. Will endorse to day shift nurse. Addendum: 10/01/21 at 0730 by Brenda Castro RN corretion: this is the opening note it was late entry d/t patient care
[2021-10-01 08:05] VITALS: BP_SYST 132
--- NOTE | 2021-10-01 08:15 | NUR ---
Opening note patient resting in bed, a/ox4, denies pain, denies nausea or vomiting, patient on 2L via nasal cannula, reassessed on room air - patient is 100% on room air, removed oxygen for now, instructed the patient to inform if feeling short of breath, he verbalized understanding. IV line is patent and infusing well. Educated patient resolution analyst light system and plan of care, he verbalized understanding, bed in lowest position, two side rails up, call light within reach, fall, aspiration and seizure precautions in place.
--- NOTE | 2021-10-01 08:27 | NUR ---
CONSULTATION PAGED REASON FOR CONSULTATION:PANCREATITIS, POSS COLITIS WAS CONSULT CALLED?Y PERSON WHO WAS NOTIFIED:DELBERT RUSSELL CONSULTING PHYSICIAN:SNEHA ALCANTARA APPEALS REVIEWER VETERAN SPECIALTY:GI APPEALS REVIEWER VETERAN PHONE NUMBER:[phone] REQUESTING PHYSICIAN:JOVITA KING
--- NOTE | 2021-10-01 08:45 | NUR ---
Diet patient was NPO, advanced diet to full liquids - educated the patient that he will be monitored for diet tolerance and will be advanced still at lunch if he is tolerating, he verbalized understanding. Addendum: 10/01/21 at 1129 by Hemant Alberto RN Patient tolerated full liquids without nausea, vomiting or abdominal pain. Will advance the diet.
[2021-10-01] MEDS: CARVEDILOL 25 MG TABLET (COREG) PO SCH (09:14)
[2021-10-01] MEDS: NEPHROVITE, (FOLIC ACID/VITAMIN B COMP W-C 1 TAB) PO SCH (09:14)
[2021-10-01] MEDS: chlordiazePOXIDE HCL 25 MG CAPSULE PO SCH ×2 (09:14→15:08)
[2021-10-01] MEDS: THIAMINE HCL 100 MG TABLET PO SCH (09:14)
[2021-10-01] MEDS: PANTOPRAZOLE SODIUM 40 MG TAB PO SCH (09:14)
[2021-10-01] MEDS: ASPIRIN 81 MG TAB.CHEW PO SCH (09:14)
[2021-10-01] MEDS: amLODIPine BESYLATE 5 MG TABLET PO SCH (09:14)
[2021-10-01 11:37] VITALS: BP_SYST 139
[2021-10-01 12:14] VITALS: BP_SYST 139
--- NOTE | 2021-10-01 13:34 | NUR ---
Dr. Delcid rounds assessed patient, okay to DC home from his standpoint, and follow up as outpatient.
--- NOTE | 2021-10-01 16:10 | NUR ---
D/C Patient Patient given medication reconciliation form and D/C instructions. Exit Care provided. Patient verbalized understanding. MD discussed with patient the results and treatment provided. Ambulatory with steady gait for discharge to home. Patient in stable condition, ID band removed. IV catheter removed, intact and dressing applied, no active bleeding. Patient educated on pain management. All belongings sent with patient. Strongly encouraged patient to follow up with his primary care provider, discharge instructions also given to the patient's parents, they verbalized understanding.
== END 2021-10-01 16:10 | disposition home or self-care (01) | DRG 720 ==
LOC: SED 17:01 → STU 22:11
PROVIDERS: ADMIT Hospitalist; ATTEND Hospitalist
DX: A41.9 Sepsis, unspecified organism (principal); N17.0 Acute kidney failure with tubular necrosis; I21.A1 Myocardial infarction type 2; K85.20 Alcohol induced acute pancreatitis without necrosis or infection; I42.7 Cardiomyopathy due to drug and external agent; R16.0 Hepatomegaly, not elsewhere classified; I50.9 Heart failure, unspecified; I13.0 Hypertensive heart and chronic kidney disease with heart failure and stage 1 through stage 4 chronic kidney disease, or unspecified chronic kidney disease; K52.9 Noninfective gastroenteritis and colitis, unspecified; F10.20 Alcohol dependence, uncomplicated; G62.9 Polyneuropathy, unspecified; I25.5 Ischemic cardiomyopathy; K86.1 Other chronic pancreatitis; Z20.822 Contact with and (suspected) exposure to COVID-19; K57.30 Diverticulosis of large intestine without perforation or abscess without bleeding; D64.9 Anemia, unspecified; N18.32 Chronic kidney disease, stage 3b; E86.0 Dehydration; Z81.1 Family history of alcohol abuse and dependence; Z86.74 Personal history of sudden cardiac arrest; Z90.49 Acquired absence of other specified parts of digestive tract; Z79.899 Other long term (current) drug therapy
CPT/HCPCS: 36415; 71045; 76376; 76770; 80048; 80053; 80061; 80076; 80307; 81000; 82150; 83690; 83735; 83880; 84100; 84443; 84484; 85025; 93005; 93306; 96374; 96375; 99285; G0378; J0610; J2060; J2270; J2405; J2543; J3475

== ENCOUNTER 2022-06-07 15:48 | Inpatient (IN) | payer MEDICAID ==
[~2022-06-07] VITALS: Ht 162.6 cm; Wt 68.1 kg
[~2022-06-07 15:48] MED LIST changes: +ACET-2634 PO; +BACL10TA PO; +FURO-150 PO; +ISMO20 PO; +LISI40TA13 PO; +LOSA100T3 PO; -MAGN400T10 PO; -THIA100T73 PO
--- NOTE | 2022-06-07 15:52 | NUR ---
Note zenobia in [facility] - 06/07/22 at 1941 by SDEDSKM Patient to [facility] 05 to rui for evaluation. Side rails up.
[2022-06-07 15:54] VITALS: BP_SYST 114
--- NOTE | 2022-06-07 15:54 | NUR ---
ER Dr. Delgadillo at bedside examining patient.
--- NOTE | 2022-06-07 16:02 | NUR ---
PT TRIAGED AND TAKEN TO BED 5. PT HAS C/O C/P , BACK AND NECK PAIN X3 DAYS. PT HAS LEFT LOWER BACK NODULE THAT HE STATES MAY BE CAUSING THE PAIN. PT HAS HX OF HTN, CKD, CARDIAC DISORDERS. PT IS AA0X4. RESP E/U. NO COUGH OR SOB. STATES PAIN IS 7/10.
--- NOTE | 2022-06-07 16:09 | NUR ---
PT TAKEN TO ROOM 5, REPORT GIVEN TO ZUNILDA BUTLER.
--- NOTE | 2022-06-07 16:15 | NUR ---
Assumed care of patient who came from home with his father c/o chest pain. Pt has hx of cardiac disorders and chronically abuses alcohol. Pt states he drinks everyday and is aware that alcohol is harmful for his heart. Pt states he experienced CHF earlier this year. Patient is A&Ox4, calm and cooperative. Will continue to monitor and provide care as ordered.
[2022-06-07 16:43] LABS: BASOPHILS # (AUTO) 0.1 K/uL (0.0-0.2); BASOPHILS % (AUTO) 0.6 % (0.0-2.0); EOSINOPHILS # (AUTO) 0.8 K/uL (0.0-0.4); EOSINOPHILS % (AUTO) 8.2 % (0.0-4.0); HEMATOCRIT 24.5 % (36-54); HEMOGLOBIN 7.8 g/dL (14.0-18.0); LYMPHOCYTES % (AUTO) 29.6 % (20.5-51.5); MEAN CORPUSCULAR HEMOGLOBIN 30 pg (27-31); MEAN CORPUSCULAR HGB CONC 32 % (32-36); MEAN CORPUSCULAR VOLUME 95 fL (79.0-98.0); MONOCYTES # (AUTO) 0.8 K/uL (0.0-1.0); MONOCYTES % (AUTO) 7.6 % (1.7-9.3); NEUTROPHILS # (AUTO) 5.5 K/uL (1.8-7.7); PLATELET COUNT (AUTO) 360 K/uL (130-430); RED BLOOD CELL COUNT(AUTO) 2.59 MIL/uL (4.2-6.2); RED CELL DISTRIBUTION WIDTH 20.3 % (9.0-15.0); WHITE BLOOD COUNT (AUTO) 10.1 K/uL (4.8-10.8)
[2022-06-07 16:54] LABS: ANION GAP 12 (5-15); CALCIUM 7.4 mg/dL (8.4-11.0); CHLORIDE 111 mmol/L (98-107); CREATININE 4.31 mg/dL (0.55-1.30); GLUCOSE 122 mg/dL (70-99); POTASSIUM 3.7 mmol/L (3.5-5.1); UREA NITROGEN, BLOOD 33 mg/dL (8-21)
[2022-06-07 16:57] LABS: GFR AFRICAN AMERICAN 19 mL/min (>90)
[2022-06-07 17:07] LABS: ALANINE AMINOTRANSFERASE 20 U/L (12-78); ALBUMIN 2.4 g/dL (3.4-4.8); ALCOHOL, BLOOD 270 mg/dL (<10); ASPARTATE AMINOTRANSFERASE 20 U/L (10-37); TOTAL BILIRUBIN 0.1 mg/dL (0.0-1.0)
[2022-06-07] MEDS ORDERED: ASPIRIN 325 MG TABLET PO ONE (17:30)
[2022-06-07] MEDS ORDERED: HEPARIN SODIUM,PORCINE 5,000 UNITS/ML VIAL IVP ONE (17:30)
[2022-06-07] MEDS ORDERED: HEPARIN 25,000 UNITS/D5W 250ML 250 ML IV ONE (17:30)
[2022-06-07 18:08] LABS: PROTHROMBIN TIME 10.4 SECS (9.5-12.5)
[2022-06-07] MEDS ORDERED: *HEPARIN PER PHARMACY XX ONE (18:15)
[2022-06-07] MEDS ORDERED: NITROGLYCERIN 0.4 MG TAB.SUBL SL PRN (18:30)
--- NOTE | 2022-06-07 19:10 | NUR ---
Received report from Judy MAURO; assuming care of patient at this time.
--- NOTE | 2022-06-07 19:15 | NUR ---
Patient A/Ox4, VSS, resp even and unlabored. Patient resting in bed with side rails raised. NAD noted at this time.
--- NOTE | 2022-06-07 19:16 | NUR ---
No IV access started on previous shift. IV access started on 20G on left upper arm and 20G on right AC.
[2022-06-07] MEDS ORDERED: HEPARIN SODIUM,PORCINE 5,000 UNITS/ML VIAL ONE (19:45)
[2022-06-07] MEDS ORDERED: ASPIRIN 325 MG TABLET ONE (19:46)
--- NOTE | 2022-06-07 20:30 | NUR ---
Heparin drip started at 10ml/hr.
--- NOTE | 2022-06-07 21:07 | NUR ---
Pt given sanitary personal wipes per pt request.
--- NOTE | 2022-06-07 21:30 | NUR ---
Patient will be admitted to care of MD FUNES. Admitted to ICU unit. Will go to room 127A. Belongings list completed. Complete and up to date summary report printed. SBAR report given to ZUNILDA Blanton at bedside with opportunity for questions.
[2022-06-07 23:00] VITALS: BP_SYST 145; BP_SYST 189
[2022-06-07] MEDS ORDERED: BACLOFEN 10 MG TABLET PO SCH (23:00)
[2022-06-07] MEDS ORDERED: hydrALAZINE HCL 25 MG TABLET PO SCH (23:00)
[2022-06-07] MEDS ORDERED: ACETAMINOPHEN 500 MG TABLET PO SCH (23:00)
[2022-06-07] MEDS ORDERED: CARVEDILOL 25 MG TABLET (COREG) PO SCH (23:00)
[2022-06-07] MEDS ORDERED: THIAMINE HCL 100 MG TABLET PO SCH (23:00)
[2022-06-07] MEDS ORDERED: PANTOPRAZOLE SODIUM 40 MG TAB PO SCH (23:00)
[2022-06-07] MEDS: chlordiazePOXIDE HCL 25 MG CAPSULE PO PRN (23:40)
[2022-06-07] MEDS: LORazepam 2 MG/ML VIAL IVP PRN (23:46)
[2022-06-07] MEDS ORDERED: hydrALAZINE HCL 25 MG TABLET ONE (23:53)
[2022-06-07] MEDS: THIAMINE HCL 100 MG TABLET PO SCH (23:53)
[2022-06-07] MEDS ORDERED: CARVEDILOL 25 MG TABLET (COREG) ONE (23:54)
[2022-06-07] MEDS ORDERED: BACLOFEN 10 MG TABLET ONE (23:54)
[2022-06-07] MEDS: BACLOFEN 10 MG TABLET PO SCH (23:55)
[2022-06-07] MEDS ORDERED: THIAMINE HCL 100 MG TABLET ONE (23:55)
[2022-06-07] MEDS: hydrALAZINE HCL 25 MG TABLET PO SCH (23:55)
[2022-06-07] MEDS: CARVEDILOL 25 MG TABLET (COREG) PO SCH (23:56)
[2022-06-07] MEDS: ACETAMINOPHEN 500 MG TABLET PO SCH (23:56)
[2022-06-07] MEDS: PANTOPRAZOLE SODIUM 40 MG TAB PO SCH (23:58)
[2022-06-08] VITALS (24 sets, daily range): BP systolic 126–189
[2022-06-08] MEDS ORDERED: PANTOPRAZOLE SODIUM 40 MG TAB PO ONE (00:06)
[2022-06-08] MEDS: LORazepam 2 MG/ML VIAL IVP PRN (04:32)
--- NOTE | 2022-06-08 05:00 | NUR ---
HEPARIN DRIPP PTT WAS 31.5 DEBBIE RN WITNESS 3000UNIT OF HEPARIN BOLUS AND INCREASE DRIP BY 200 AND REPEAT PTT IN 6 HOUR
[2022-06-08] MEDS: ACETAMINOPHEN 500 MG TABLET PO SCH ×4 (06:17→23:49)
[2022-06-08 06:53] LABS: BASOPHILS % (AUTO) 0.6 % (0.0-2.0); EOSINOPHILS # (AUTO) 1.3 K/uL (0.0-0.4); EOSINOPHILS % (AUTO) 15.5 % (0.0-4.0); HEMATOCRIT 24.2 % (36-54); LYMPHOCYTES # (AUTO) 1.6 K/uL (1.0-5.5); LYMPHOCYTES % (AUTO) 19.5 % (20.5-51.5); MEAN CORPUSCULAR HEMOGLOBIN 32 pg (27-31); MEAN CORPUSCULAR HGB CONC 33 % (32-36); MEAN CORPUSCULAR VOLUME 96 fL (79.0-98.0); MONOCYTES # (AUTO) 0.5 K/uL (0.0-1.0); MONOCYTES % (AUTO) 6.4 % (1.7-9.3); NEUTROPHILS # (AUTO) 4.8 K/uL (1.8-7.7); PLATELET COUNT (AUTO) 344 K/uL (130-430); RED BLOOD CELL COUNT(AUTO) 2.53 MIL/uL (4.2-6.2); RED CELL DISTRIBUTION WIDTH 19.7 % (9.0-15.0); WHITE BLOOD COUNT (AUTO) 8.2 K/uL (4.8-10.8)
[2022-06-08 07:16] LABS: CALCIUM 7.7 mg/dL (8.4-11.0); CREATININE 3.57 mg/dL (0.55-1.30); POTASSIUM 4.1 mmol/L (3.5-5.1)
[2022-06-08] MEDS: hydrALAZINE HCL 25 MG TABLET PO SCH ×4 (09:00→20:49)
[2022-06-08] MEDS ORDERED: ISOSORBIDE MONONITRATE 20 MG TABLET (ISMO) PO SCH (09:00)
[2022-06-08] MEDS: THIAMINE HCL 100 MG TABLET PO SCH (09:32)
[2022-06-08] MEDS: NEPHROVITE, (FOLIC ACID/VITAMIN B COMP W-C 1 TAB) PO SCH (09:32)
[2022-06-08] MEDS: BACLOFEN 10 MG TABLET PO SCH ×3 (09:33→20:51)
[2022-06-08] MEDS: PANTOPRAZOLE SODIUM 40 MG TAB PO SCH (09:33)
[2022-06-08] MEDS: ISOSORBIDE MONONITRATE 30 MG TAB.ER.24H PO SCH (09:33)
[2022-06-08] MEDS: CARVEDILOL 25 MG TABLET (COREG) PO SCH ×2 (09:33→20:50)
[2022-06-08] MEDS: FUROSEMIDE 20 MG TABLET PO SCH (09:34)
--- NOTE | 2022-06-08 10:34 | NUR ---
PT RECV'D FROM LILIAN RN. PT AT CHANGE OF SHIFT SLEEPING QUIETLY WITH NAD NOTED. VSS, AFEBRILE. DR. CLINTON ROUNDED ON PT. CONT ON HEPARIN DRIP AT 1200 UNITS/HR WITH NO ACTIVE BLEEDING NOTED. PT DENIES ANY PAIN. TOLERATED BREAKFAST WELL WITHOUT N/V. DENIES ANY SOB. CONT ON ROOM AIR WITH O2 SAT 98%. HYDRALAZINE HELD DUE TO SBP 120'S, COREG GIVEN. CONT ON SENIOR DATABASE PROGRAMMER WITH NSR NOTED WITH RATE IN 90'S. CONDITION STABLE AT THIS TIME. ALL NEEDS ATTENDED TO. CALL LIGHT IN REACH. WILL CONT TO MONITOR.
[2022-06-08] MEDS ORDERED: HEPARIN 25,000 UNITS/D5W 250ML 250 ML IV PRN (12:10)
[2022-06-08] MEDS ORDERED: HEPARIN SODIUM,PORCINE 2000 UNITS/0.4 ML BOLUS IVP PRN (12:30)
[2022-06-08] MEDS ORDERED: HEPARIN SODIUM,PORCINE 3000 UNITS/0.6 ML BOLUS IVP PRN (12:30)
--- NOTE | 2022-06-08 19:56 | NUR ---
OPENING NOTE PT AOX4 IN BED RESTING. PT HAS IV IN R A/C,#20 AND L U/A #20 SL. PT CONT ON HEPARIN DRIP AT 1300 UNITS/HR WITH NO ACTIVE BLEEDING NOTED. PT CONT ON ROOM AIR WITH O2 SAT 98%. PT IN SECOND RIGGER WITH NSR NOTED WITH RATE IN 90'S. CONDITION STABLE AT THIS TIME. ALL SAFETY MEASURES IN PLACE. CALL LIGHT IN REACH. WILL CONT TO MONITOR.
--- NOTE | 2022-06-08 19:59 | NUR ---
WARM ROOM PT C/O OF ROOM BEING TO HOT. EVS CALLED AND WILL BRING A FAN
--- NOTE | 2022-06-08 20:06 | NUR ---
NECK PAIN PT C/O STIFF NECK WILL GET BACLOFEN AT 2100
[2022-06-08] MEDS: chlordiazePOXIDE HCL 25 MG CAPSULE PO PRN (20:50)
--- NOTE | 2022-06-08 22:00 | NUR ---
C/O PAIN WHEN REPLACING HE CAD APPLICATION SUPPORT SPECIALIST LEADS. PT REPORTS PAIN WHILE REPLACING MONITOR ASK PT WHAT THE PAIN FEELS LIKE AND THE PT STATED " IT FELT LIKE IT DID WHEN I WAS AT HOME BEFORE I CAME TO THE ER" EKG ORDERED
--- NOTE | 2022-06-08 23:14 | NUR ---
HTN SPOKE WITH MD TO GET PRN ORDER FOR HYDRALAZINE R/T PT'S BP UP TO 179 SYSTOLIC
[2022-06-08] MEDS ORDERED: hydrALAZINE HCL 20 MG/ML VIAL ONE (23:29)
[2022-06-08] MEDS ORDERED: hydrALAZINE HCL 20 MG/ML VIAL IVP PRN (23:30)
[2022-06-09] VITALS (23 sets, daily range): BP systolic 116–187
--- NOTE | 2022-06-09 03:00 | NUR ---
PAIN UPPER EPIGASTRIC EKG DONE AND O2 @ 2L STARTED. PT REPOSITIONED AND REPORTED FEELING BETTER. PT EKG RESULT WAS NORMAL.
[2022-06-09] MEDS: ACETAMINOPHEN 500 MG TABLET PO SCH ×2 (05:09→11:52)
--- NOTE | 2022-06-09 05:11 | NUR ---
DETOX PT C/O OF FEELING HE FELT LIKE HE WA DETOX. PT REORTED RESTLESS LEG AND SLIGHT TREMORS SEEN IN THE HANDS. PT WAS GIVEN LIBRIUM
[2022-06-09] MEDS: chlordiazePOXIDE HCL 25 MG CAPSULE PO PRN (05:33)
[2022-06-09 06:59] LABS: BASOPHILS # (AUTO) 0.1 K/uL (0.0-0.2); BASOPHILS % (AUTO) 0.7 % (0.0-2.0); EOSINOPHILS # (AUTO) 1.5 K/uL (0.0-0.4); HEMATOCRIT 25.7 % (36-54); HEMOGLOBIN 8.5 g/dL (14.0-18.0); LYMPHOCYTES # (AUTO) 1.8 K/uL (1.0-5.5); LYMPHOCYTES % (AUTO) 18.2 % (20.5-51.5); MEAN CORPUSCULAR HEMOGLOBIN 31 pg (27-31); MEAN CORPUSCULAR HGB CONC 33 % (32-36); MEAN CORPUSCULAR VOLUME 95 fL (79.0-98.0); MONOCYTES # (AUTO) 0.4 K/uL (0.0-1.0); MONOCYTES % (AUTO) 4.1 % (1.7-9.3); NEUTROPHILS # (AUTO) 6.3 K/uL (1.8-7.7); PLATELET COUNT (AUTO) 372 K/uL (130-430); RED BLOOD CELL COUNT(AUTO) 2.71 MIL/uL (4.2-6.2); RED CELL DISTRIBUTION WIDTH 20.2 % (9.0-15.0); WHITE BLOOD COUNT (AUTO) 10.2 K/uL (4.8-10.8)
[2022-06-09 08:23] LABS: ALBUMIN 2.2 g/dL (3.4-4.8); CREATININE 3.22 mg/dL (0.55-1.30); POTASSIUM 4.6 mmol/L (3.5-5.1); TOTAL BILIRUBIN 0.1 mg/dL (0.0-1.0)
[2022-06-09] MEDS: ISOSORBIDE MONONITRATE 30 MG TAB.ER.24H PO SCH (09:25)
[2022-06-09] MEDS: hydrALAZINE HCL 25 MG TABLET PO SCH ×3 (09:32→20:23)
[2022-06-09] MEDS: PANTOPRAZOLE SODIUM 40 MG TAB PO SCH ×2 (09:32→20:27)
[2022-06-09] MEDS: FUROSEMIDE 20 MG TABLET PO SCH (09:33)
[2022-06-09] MEDS: NEPHROVITE, (FOLIC ACID/VITAMIN B COMP W-C 1 TAB) PO SCH (09:34)
[2022-06-09] MEDS: CARVEDILOL 25 MG TABLET (COREG) PO SCH ×2 (09:34→20:25)
[2022-06-09] MEDS: THIAMINE HCL 100 MG TABLET PO SCH (09:34)
[2022-06-09] MEDS: BACLOFEN 10 MG TABLET PO SCH ×3 (09:35→20:24)
--- NOTE | 2022-06-09 12:31 | NUR ---
RN NOTES DR. Noé GARCIA HERE TO SEE PATIENT, WITH ORDERS. HEPARIN DRIP DISCONTINUED ORDERED.
--- NOTE | 2022-06-09 20:00 | NUR ---
OPENING NOTE PT AOX4 IN BED RESTING. PT HAS IV IN R A/C,#20 AND L U/A #20 SL. PT HEPARIN DRIP WAS D/C. PT IV'S WERE FLUSHED WITH SALINE AND BOTH ARE PATENT. PT CONT ON ROOM AIR WITH O2 SAT 98%. PT IN ST AT THIS TIME AND BP IS ELEVATED. WILL CHECK FOR PRN IN ORDER. ALL SAFETY MEASURES IN PLACE. CALL LIGHT IN REACH. WILL CONT TO MONITOR.
--- NOTE | 2022-06-09 20:15 | NUR ---
ELEVATED BP PT P ELEVATED UPON REVIEW IT APPEARS 1700 P WAS NOT GIVEN. WILL GIVE 2100 DOSE OF ALL BP MEDICATION BNOW
--- NOTE | 2022-06-09 22:30 | NUR ---
PAIN PT C/O PAIN ONLY STATED THAT THE PAIN IS ALL OVER. PT WAS TOLD HE ONLY HAS TYLENOL FOR PAIN BUT IF THE PAIN IS 5/10 THE MD CAN BE CALLED. PT WAS REPOSITIONED AND REPORTED FEELING BETTER
[2022-06-10] VITALS (22 sets, daily range): BP systolic 108–175
[2022-06-10] MEDS: ACETAMINOPHEN 500 MG TABLET PO SCH ×4 (06:13→17:41)
[2022-06-10 06:32] LABS: BASOPHILS # (AUTO) 0.1 K/uL (0.0-0.2); BASOPHILS % (AUTO) 0.8 % (0.0-2.0); EOSINOPHILS # (AUTO) 1.4 K/uL (0.0-0.4); EOSINOPHILS % (AUTO) 12.6 % (0.0-4.0); HEMATOCRIT 24.5 % (36-54); HEMOGLOBIN 8.1 g/dL (14.0-18.0); LYMPHOCYTES # (AUTO) 1.7 K/uL (1.0-5.5); LYMPHOCYTES % (AUTO) 14.7 % (20.5-51.5); MEAN CORPUSCULAR HEMOGLOBIN 32 pg (27-31); MEAN CORPUSCULAR HGB CONC 33 % (32-36); MEAN CORPUSCULAR VOLUME 96 fL (79.0-98.0); MONOCYTES # (AUTO) 0.7 K/uL (0.0-1.0); NEUTROPHILS # (AUTO) 7.5 K/uL (1.8-7.7); NEUTROPHILS % (AUTO) 65.9 % (40.0-70.0); PLATELET COUNT (AUTO) 388 K/uL (130-430); RED BLOOD CELL COUNT(AUTO) 2.55 MIL/uL (4.2-6.2); RED CELL DISTRIBUTION WIDTH 20.6 % (9.0-15.0); WHITE BLOOD COUNT (AUTO) 11.3 K/uL (4.8-10.8)
[2022-06-10 08:32] LABS: CREATININE 3.11 mg/dL (0.55-1.30); POTASSIUM 4.7 mmol/L (3.5-5.1); TOTAL BILIRUBIN 0.3 mg/dL (0.0-1.0)
[2022-06-10] MEDS: NEPHROVITE, (FOLIC ACID/VITAMIN B COMP W-C 1 TAB) PO SCH (08:57)
[2022-06-10] MEDS: BACLOFEN 10 MG TABLET PO SCH ×3 (08:57→22:28)
[2022-06-10] MEDS: ISOSORBIDE MONONITRATE 30 MG TAB.ER.24H PO SCH (08:58)
[2022-06-10] MEDS: hydrALAZINE HCL 25 MG TABLET PO SCH ×4 (08:59→22:28)
[2022-06-10] MEDS: PANTOPRAZOLE SODIUM 40 MG TAB PO SCH ×2 (09:00→22:28)
[2022-06-10] MEDS: FUROSEMIDE 20 MG TABLET PO SCH (09:00)
[2022-06-10] MEDS: CARVEDILOL 25 MG TABLET (COREG) PO SCH ×2 (09:00→22:28)
[2022-06-10] MEDS: THIAMINE HCL 100 MG TABLET PO SCH (09:01)
[2022-06-10 09:09] LABS: CALCIUM 8.5 mg/dL (8.4-11.0)
--- NOTE | 2022-06-10 12:56 | NUR ---
Sample Paster NUTRITION COORDINATOR received a referral to see pt. in ICU Room 127. NUTRITION COORDINATOR introduced self to pt who was awake and sitting upright. NUTRITION COORDINATOR asked pt. if he knew what he was admitted into the hospital for. Pt. stated he has heart problems. NUTRITION COORDINATOR asked if the doctor spoke to him about alcohol liver disease. Pt. stated did so and that he had been in [facility] for the same health issues about a month ago. Pt. stated he has cut back from a bottle of vodka daily to a 1/2 bottle of vodka. NUTRITION COORDINATOR asked him to continue to cut back on his alcohol consumption. Pt. stated he has participated in AA for a year long, but did not find it helpful. NUTRITION COORDINATOR advised pt. about getting support from all angles, AA, family, an inpatient program. NUTRITION COORDINATOR shared with pt. her business card as well as numerous resources for substance abuse. Pt. denied ever feeling suicidal. Pt. stated he resides with his parents and his younger brother. Pt. stated he really did not drink a lot prior to being admitted. NUTRITION COORDINATOR gave him a copy of his alcohol intake report which showed pt. has an ETOH of 270. NUTRITION COORDINATOR asked pt. to seriously consider getting back into AA. Pt. could call in for a zoom meeting or call in for the program. NUTRITION COORDINATOR asked if pt. has any other questions. Pt. did not. NUTRITION COORDINATOR stated pt. could call her i8f he had any questions.
[2022-06-10] MEDS: chlordiazePOXIDE HCL 25 MG CAPSULE PO PRN (16:21)
--- NOTE | 2022-06-10 17:01 | NUR ---
aT 1530 THE RESOURCE WAS INFORMED THAT PT HAS TRANSFER ORDER TO TELE
--- NOTE | 2022-06-10 19:13 | NUR ---
OPENING NOTE PT AOX2 IN BED SLIGHTLY CONFUSED AND REMOVING ALL OF HIS OXYGEN AND BP CUFF. PT WAS REDIRECTED. PER DAY NURSE PT RECEIVED LIBRIUM AROUND 1700 WHICH MAYBE CAUSING CONFUSION. PT HAS IV IN R A/C,#20 AND L U/A #20. PT IV'S WERE FLUSHED WITH SALINE AND BOTH ARE PATENT. PT CONT ON 2L O2 WITH O2 SAT 98%. ALL SAFETY MEASURES IN PLACE. CALL LIGHT IN REACH. WILL CONT TO MONITOR.
--- NOTE | 2022-06-10 21:18 | NUR ---
TRANSFER NOTE PT TRANSFERRED TO [facility] TELE. REPORT GIVEN AT BEDSIDE AND CARE TRANSFERRED Addendum: 06/10/22 at 2232 by Khurram Lawrence RN RN WRONG PT
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
[2022-06-10] MEDS: SPIRONOLACTONE 25 MG TABLET (ALDACTONE) PO SCH (22:28)
--- NOTE | 2022-06-10 22:32 | NUR ---
SPOKE WITH GIVEN ORDER FOR LIBRIUM X1 FOR AUDITORY AND TACTILE HALLUCINATIONS
[2022-06-10] MEDS ORDERED: chlordiazePOXIDE HCL 25 MG CAPSULE PO ONE (23:45)
[2022-06-11] VITALS (20 sets, daily range): BP systolic 106–158
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
[2022-06-11] MEDS: ACETAMINOPHEN 500 MG TABLET PO SCH ×4 (00:42→21:09)
[2022-06-11 07:28] LABS: ALBUMIN 1.9 g/dL (3.4-4.8); CALCIUM 8.7 mg/dL (8.4-11.0); CREATININE 3.32 mg/dL (0.55-1.30); POTASSIUM 4.5 mmol/L (3.5-5.1); THYROID STIMULATING HORMONE 1.22 uIu/mL (0.36-3.74); TOTAL BILIRUBIN 0.2 mg/dL (0.0-1.0)
[2022-06-11] MEDS: FUROSEMIDE 20 MG TABLET PO SCH (08:44)
[2022-06-11] MEDS: CARVEDILOL 25 MG TABLET (COREG) PO SCH ×2 (08:44→21:11)
[2022-06-11] MEDS: PANTOPRAZOLE SODIUM 40 MG TAB PO SCH ×2 (08:45→21:11)
[2022-06-11] MEDS: SPIRONOLACTONE 25 MG TABLET (ALDACTONE) PO SCH ×2 (08:45→21:11)
[2022-06-11] MEDS: hydrALAZINE HCL 25 MG TABLET PO SCH ×4 (08:46→21:10)
[2022-06-11] MEDS: BACLOFEN 10 MG TABLET PO SCH ×3 (08:46→21:10)
[2022-06-11] MEDS: NEPHROVITE, (FOLIC ACID/VITAMIN B COMP W-C 1 TAB) PO SCH (08:47)
[2022-06-11] MEDS: ISOSORBIDE MONONITRATE 30 MG TAB.ER.24H PO SCH (08:47)
[2022-06-11] MEDS: THIAMINE HCL 100 MG TABLET PO SCH (08:51)
--- NOTE | 2022-06-11 09:08 | NUR ---
AT 0900 AM , COLLECTED URINE FOR DRUG SCREEN
[2022-06-11 09:56] LABS: BENZODIAZEPINE, URINE POSITIVE (NEG <=150); METHAMPHETAMINES SCREEN,URINE POSITIVE (NEG <=500); URINE AMPHETAMINE POSITIVE (NEG <=500)
[2022-06-11 09:57] LABS: BARBITURATE, URINE NEGATIVE (NEG <=200); CANNABINOID, URINE NEGATIVE (NEG <=50); COCAINE, URINE NEGATIVE (NEG <=150); OPIATE, URINE NEGATIVE (NEG <=100); PHENCYCLIDINE SCREEN,URINE NEGATIVE (NEG <=25); UR TRICYCLIC ANTIDEPRESSANTS NEGATIVE (NEG <=300); URINE METHADONE NEGATIVE (NEG <=200); URINE OXYCODONE SCREEN NEGATIVE (NEG <=100); URINE PROPOXYPHENE SCREEN NEGATIVE (NEG <=300)
--- NOTE | 2022-06-11 14:14 | NUR ---
AT 1405 PT. WAS C/O OF PAIN ON THE LEFT SIDE OF THE NECK. tYLENOL WAS GIVEN AT 1200 NOON SO THE BACLOFEN WAS GIVEN
--- NOTE | 2022-06-11 16:11 | NUR ---
AT 1610 PT WOKE UP WITH SAME COMPLAINT OF WORSENING LEFT SIDE NECK PAIN AND MOANING. dR Mullen WAS PAGED TO INFORM LEFT NECK DISCOMFORT , SEVERE DESCIBED BY THE PT
--- NOTE | 2022-06-11 19:15 | NUR ---
OPENING NOTES Patient resting in bed - no s/s pain or distress noted. Respirations even and unlabored - head of bed elevated 2L NC. IV site patent - no s/s redness, infection, or infiltration. Bed locked and in lowest position. Call light within reach - bed alarm on.
[2022-06-12] VITALS: BP_SYST 155
[2022-06-12] MEDS: ACETAMINOPHEN 500 MG TABLET PO SCH ×3 (00:27→12:28)
[2022-06-12 06:36] LABS: BASOPHILS # (AUTO) 0.1 K/uL (0.0-0.2); BASOPHILS % (AUTO) 0.8 % (0.0-2.0); EOSINOPHILS # (AUTO) 1.2 K/uL (0.0-0.4); EOSINOPHILS % (AUTO) 10.5 % (0.0-4.0); HEMATOCRIT 23.8 % (36-54); HEMOGLOBIN 7.8 g/dL (14.0-18.0); LYMPHOCYTES # (AUTO) 1.5 K/uL (1.0-5.5); LYMPHOCYTES % (AUTO) 12.8 % (20.5-51.5); MEAN CORPUSCULAR HEMOGLOBIN 31 pg (27-31); MEAN CORPUSCULAR HGB CONC 33 % (32-36); MEAN CORPUSCULAR VOLUME 94 fL (79.0-98.0); MONOCYTES # (AUTO) 0.9 K/uL (0.0-1.0); MONOCYTES % (AUTO) 7.9 % (1.7-9.3); PLATELET COUNT (AUTO) 422 K/uL (130-430); RED BLOOD CELL COUNT(AUTO) 2.53 MIL/uL (4.2-6.2); RED CELL DISTRIBUTION WIDTH 21.8 % (9.0-15.0); WHITE BLOOD COUNT (AUTO) 11.8 K/uL (4.8-10.8)
[2022-06-12 07:10] LABS: ALBUMIN 2.2 g/dL (3.4-4.8); CALCIUM 8.6 mg/dL (8.4-11.0); CREATININE 3.19 mg/dL (0.55-1.30); POTASSIUM 4.7 mmol/L (3.5-5.1); TOTAL BILIRUBIN 0.2 mg/dL (0.0-1.0)
[2022-06-12 07:50] VITALS: BP_SYST 138
[2022-06-12] MEDS: PANTOPRAZOLE SODIUM 40 MG TAB PO SCH (08:28)
[2022-06-12] MEDS: NEPHROVITE, (FOLIC ACID/VITAMIN B COMP W-C 1 TAB) PO SCH (08:28)
[2022-06-12] MEDS: THIAMINE HCL 100 MG TABLET PO SCH (08:29)
[2022-06-12] MEDS: FUROSEMIDE 20 MG TABLET PO SCH (08:29)
[2022-06-12] MEDS: ISOSORBIDE MONONITRATE 30 MG TAB.ER.24H PO SCH (08:29)
[2022-06-12] MEDS: BACLOFEN 10 MG TABLET PO SCH (08:29)
[2022-06-12] MEDS: SPIRONOLACTONE 25 MG TABLET (ALDACTONE) PO SCH (08:30)
[2022-06-12] MEDS: hydrALAZINE HCL 25 MG TABLET PO SCH ×2 (08:30→12:29)
[2022-06-12] MEDS: CARVEDILOL 25 MG TABLET (COREG) PO SCH (08:31)
--- NOTE | 2022-06-12 12:30 | NUR ---
PT AMBULATED TO BATHROOM WITH ASSIST. PT STILL WOBBLY, NEEDS TO HOLD ON TO FURNITURE FOR STABILITY AND BALANCE.
[2022-06-12 12:39] VITALS: BP_SYST 124
--- NOTE | 2022-06-12 13:44 | NUR ---
DR BRIGGSIUM HERE AND SEEN PT, SAID TO DC PT HOME.
[2022-06-12] MEDS ORDERED: THIA100T70 PO (13:56)
[2022-06-12] MEDS ORDERED: LIB25 PO (13:57)
[2022-06-12 14:12] VITALS: BP_SYST 123
--- NOTE | 2022-06-12 14:42 | NUR ---
PT ALREADY DRESSED UP WHEN I SAW HIM IN THE ROOM AND HE TOOK OUT HIS IV ACCESS. DISCUSSED WITH PT HIS DISCHARGE PAPER SPECIALLY HIS CURRENT MEDICATIONS AND NEW PRESCRIPTIONS. EDUCATED PT ON THE EFFECTS AND SIDE EFFECTS OF MEDICATIONS. GIVEN A LIST OF THE COMMON MEDICATIONS AND THEIR EFFECTS AND SIDE EFFECTS. GIVEN READING MATERIALS ON ADMISSION DIAGNOSIS.
--- NOTE | 2022-06-12 15:01 | NUR ---
D/C Patient Patient given medication reconciliation form and D/C instructions. Exit Care provided. Patient verbalized understanding. MD discussed with patient the results and treatment provided. Ambulatory with steady gait for discharge to home. Patient in stable condition, ID band removed. IV catheter removed, intact and dressing applied, no active bleeding. Rx of LIBRIUM AND THIAMINE given. Patient educated on pain management. All belongings sent with patient.
== END 2022-06-12 15:00 | disposition home or self-care (01) | DRG 203 ==
LOC: SED 15:48 → SIC 19:59 → STU 06-10 21:35 → SIC 06-10 21:37 → SMU 06-11 17:33 → STU 06-11 18:23
PROVIDERS: ADMIT Family Medicine; ATTEND Family Medicine
DX: M94.0 Chondrocostal junction syndrome [Tietze] (principal); E43 Unspecified severe protein-calorie malnutrition; I42.6 Alcoholic cardiomyopathy; I13.0 Hypertensive heart and chronic kidney disease with heart failure and stage 1 through stage 4 chronic kidney disease, or unspecified chronic kidney disease; I50.9 Heart failure, unspecified; K70.9 Alcoholic liver disease, unspecified; N18.4 Chronic kidney disease, stage 4 (severe); K20.90 Esophagitis, unspecified without bleeding; D64.9 Anemia, unspecified; Y90.8 Blood alcohol level of 240 mg/100 ml or more; Z20.822 Contact with and (suspected) exposure to COVID-19; F10.229 Alcohol dependence with intoxication, unspecified; F10.239 Alcohol dependence with withdrawal, unspecified; K29.70 Gastritis, unspecified, without bleeding; Z79.899 Other long term (current) drug therapy
CPT/HCPCS: 36415; 71045; 76700-TC; 80048; 80053; 80061; 80307; 82550; 83690; 83735; 83880; 84443; 84484; 85025; 85610-TC; 85730-TC; 87081; 93005; 93306; 96374; 99291; 99292; G0378; G0482; J0360; J1644; J2060